=== PATIENT | female | born 1965 | race Caucasian/White ===

== ENCOUNTER → 2016-07-10 | Outpatient (CLI) | payer OTHER ==
--- NOTE | 2016-07-10 19:40 | Diagnostic Imaging Report ---
Bilateral diagnostic mammogram. The current study was also evaluated with a Computer Aided Detection (CAD) system. No prior studies are available for comparison. INDICATION: Lateral right breast pain and bilateral periareolar pain. FINDINGS: There are scattered fibroglandular densities seen slightly more dense in the lateral aspect of the left breast. This represents global asymmetry in the left breast that appears, however, to be related to fibroglandular tissue with no suspicious mass, architectural distortion or cluster of calcification identified. Benign-appearing calcifications are seen. IMPRESSION: No mammographic evidence of malignancy. Ultrasound evaluation pending. ACR BI-RADS Category 0: Incomplete. (Needs additional imaging evaluation). Result letter will be mailed to the patient. Note: At least 10% of breast cancer is not imaged by mammography. Dictated by: Dictated on workstation # [id number]
--- NOTE | 2016-07-10 19:41 | Diagnostic Imaging Report ---
Bilateral breast ultrasound. INDICATION: Right breast outer lump and bilateral periareolar pain. TECHNIQUE: All four quadrants and the retroareolar region were examined on this study. FINDINGS: The breast parenchyma in both sides is unremarkable with no focal lesion seen. IMPRESSION: Negative study. Clinical followup recommended. ACR BI-RADS Category 1: Negative. Dictated by: Dictated on workstation # [id number]
== END ==
LOC: RAD 08:37
PROVIDERS: ATTEND Nurse Practitioner Family
DX: N63 Unspecified lump in breast (principal)

== ENCOUNTER → 2016-08-20 | Outpatient (CLI) | payer OTHER | LOC: PREOP 05:42 | PROVIDERS: ATTEND Surgery | DX: Z01.818 Encounter for other preprocedural examination (principal); Z12.11 Encounter for screening for malignant neoplasm of colon; Z80.0 Family history of malignant neoplasm of digestive organs ==

== ENCOUNTER → 2017-01-11 | Outpatient (CLI) | payer OTHER ==
--- NOTE | 2017-01-11 15:56 | Diagnostic Imaging Report ---
PROCEDURE: CT abdomen and pelvis without contrast. TECHNIQUE: Multiple contiguous axial images were obtained through the abdomen and pelvis without the use of intravenous contrast. INDICATION: Pelvic pain. Left lower quadrant pain. FINDINGS: The lung bases demonstrate minimal groundglass opacity in the right lower lobe posteriorly, likely atelectasis. The liver, the spleen, the pancreas, and the adrenals appear unremarkable for an unenhanced exam. The gallbladder appears slightly contracted with no calcified stone. There is no hydronephrosis. Pelvic calcifications are seen with no urinary tract stone. There is thickening of the left rectus abdominis with slight heterogeneity, probably related to a rectus sheath hematoma. There is no bowel obstruction. No significant free fluid or fluid collection in the abdomen or pelvis. The abdominal aorta is normal in caliber. No paraaortic significantly enlarged lymph node is seen. The uterus and adnexa appear grossly unremarkable. The osseous structures appear grossly unremarkable. IMPRESSION: Thickening in the left rectus sheath below the level of the umbilicus may relate to rectus sheath hematoma. Maximus Hammer, the Nurse Practitioner taking care of the patient is called and informed of the findings at 8:40 AM on 01/12/17. Dictated by: Dictated on workstation # [id number]
--- NOTE | 2017-01-11 15:57 | Diagnostic Imaging Report ---
INDICATION: Pelvic pain. FINDINGS: The left ovary could not be identified. There is no left adnexal lesion. The right ovary contains small cysts with the largest measuring 1.8 cm and showing no complexity. There is no fibroid or myometrial mass. The endometrium is 5 mm which is within normal limits. IMPRESSION: Nonidentification of the left ovary. Simple appearing right ovarian cyst measuring 1.8 cm maximally. No free fluid. Dictated by: Dictated on workstation # [id number]
== END ==
LOC: RAD 13:54
PROVIDERS: ATTEND Nurse Practitioner Family
DX: N83.201 Unspecified ovarian cyst, right side (principal)
CPT/HCPCS: 74176; 76830; 76856

== ENCOUNTER → 2017-01-12 | Outpatient (CLI) | payer OTHER ==
[~2017-01-12] MED LIST: CATHETER FLUSH 10 ML SYR IV PRN; IOHEXOL 350 MG/ML 100 ML (OMNIPAQUE 350) VIAL IV ONE; NS 100 ML (IVPB) BAG IV ONE
[2017-01-12 11:50] LABS: BLOOD UREA NITROGEN 8 MG/DL (7-18); BUN/CREATININE RATIO 12; CREATININE SERUM 0.69 MG/DL (0.60-1.30); GFR ESTIMATED > 60
--- NOTE | 2017-01-12 12:59 | Diagnostic Imaging Report ---
PROCEDURE: CT abdomen and pelvis with contrast. TECHNIQUE: Multiple contiguous axial images were obtained through the abdomen and pelvis after administration of intravenous contrast. INDICATION: Left-sided pelvic pain. Exam compared with nonenhanced study of one day prior. Heterogeneous thickening of the infraumbilical left rectus sheath is a redemonstrated but less conspicuous finding. The left sheath components measure 2 cm maximal AP thickness today, previously 2.4 cm at this same level. By contrast the contralateral normal-appearing right sheath contents were about 1 cm in thickness. There is no extravasation of contrast media. No findings of active hemorrhage. The inferior epigastric arteries bilaterally appeared patent and unremarkable. There is mild engorgement and hyperenhancement of left-sided parametrial and gonadal venous channels which may reflect mild left-sided pelvic congestion. The uterus, adnexa, and urinary bladder otherwise unremarkable. There is no diverticulitis or appendicitis. There is no hydronephrosis. Liver, spleen, adrenals, pancreas, gallbladder unremarkable. There is no abdominal/ pelvic free fluid. IMPRESSION: Slight reduction in thickening of the left infraumbilical rectus sheath without extravasation of contrast or evidence for active bleeding. No adverse development when compared to prior. Some distention of left-sided parametrial and gonadal venous channels is a nonspecific finding. Negative for urinary tract obstruction, diverticulitis, appendicitis, or other inflammatory process. Dictated by: Dictated on workstation # [id number]
== END ==
LOC: RAD 11:20
PROVIDERS: ATTEND Nurse Practitioner Family
DX: R93.5 Abnormal findings on diagnostic imaging of other abdominal regions, including retroperitoneum (principal)
CPT/HCPCS: 36415; 74177; 82565; 84520

== ENCOUNTER → 2017-11-10 | Outpatient (CLI) | payer SELFPAY ==
--- NOTE | 2017-11-10 12:38 | Diagnostic Imaging Report ---
PROCEDURE: MR imaging cervical spine without contrast. TECHNIQUE: Multiplanar, multisequence MR imaging of the cervical spine was performed without contrast. INDICATION: Disequilibrium, back pain, neck pain. COMPARISON: There are no prior studies available for comparison. FINDINGS: The T2 sagittal images reveal that there is desiccation of the disc at every level and that there is fairly severe narrowing of the disc spaces at C4-5 and C5-6 and to a lesser degree at C6-7. At the C5-6 level, there is a broad-based disc bulge centrally. The disc indents the ventral aspect of the thecal sac and narrows the AP diameter to 7.7 mm. There is also narrowing of the neural foramen bilaterally at this level, particularly on the right. At the C4-5 level, there is a broad-based disc bulge which flattens the ventral aspect of the thecal sac and narrows the AP diameter to 9.7 mm. There is also neural foraminal narrowing at this level bilaterally. At the C6-7 level, there is a disc bulge eccentric to the right. The disc compresses the right ventral aspect of the thecal sac and narrows the AP diameter to 8.2 mm. There is also narrowing of the neural foramen on the right at this level. Mild neural foraminal narrowing on the left is also seen. At the C3-4 level, there is a disc bulge eccentric to the right. The disc narrows the AP diameter of the thecal sac to 10.1 mm. There is mild narrowing of the neural foramen on the right at this level. The remainder of the cervical spine is unremarkable for spinal stenosis or nerve root encroachment. There is no abnormal signal arising from the cord or the vertebral bodies to indicate an acute abnormality. There is no sign of a paraspinal mass. The expected carotid and vertebral flow voids are evident bilaterally. IMPRESSION: 1. There is multilevel degenerative disc, ligamentous, and bony disease involving the cervical spine. The C5-6 and C6-7 levels appear to be most severely affected. 2. There is no acute bony abnormality identified, and there is no sign of a cord lesion. Dictated by: Dictated on workstation # [id number]
== END ==
LOC: RAD 08:18
PROVIDERS: ATTEND Nurse Practitioner Family
DX: M53.2X2 Spinal instabilities, cervical region (principal); M47.812 Spondylosis without myelopathy or radiculopathy, cervical region
CPT/HCPCS: 72141

== ENCOUNTER 2018-05-03 15:24 | Emergency (ER) | payer SELFPAY ==
[~2018-05-03] VITALS: Ht 160 cm; Wt 63.5 kg
--- OUTSIDE RECORDS SUMMARY | 2018-05-03 15:29 | XMS REPORT ---
Author Author DHILLONEB Salinas Organization [facility] Address [address] [place] [address] Care Team Providers Care Pool Manager Name Role Phone EB DHILLON Unavailable PROBLEMS Type Condition ICD9-CM Code [id number]-AP Code Onset Dates Condition Status SNOMED Code Problem Essential hypertension I10 Active 87358650 Problem Abnormal CT of the abdomen R93.5 Active 85776393315392469 Problem Tobacco abuse counseling Z71.6 Active 800865151 Problem Tobacco abuse Z72.0 Active 529287621 Problem GERD with esophagitis K21.0 Active 996994889 Problem Hypercholesteremia E78.00 Active 09212403 Problem Overweight (BMI 25.0-29.9) E66.3 Active 707694250 Problem Menopausal vasomotor syndrome N95.1 Active 854350785 ALLERGIES No Information ENCOUNTERS Encounter Location Date Diagnosis [place] [id number] [place] [address]10- 1796 Feb, [facility] [id number] [place] [address] 01173- 1301 November, [facility] [id number] [place] [address] 78555- 1329 November, Essential hypertension I10 ; Hypercholesteremia E78.00 ; GERD with esophagitis K21.0 ; Tobacco abuse Z72.0 ; Tobacco abuse counseling Z71.6 ; Cervical spine pain M54.2 ; Menopausal vasomotor syndrome N95.1 and Overweight (BMI 25.0-29.9) E66.3 [facility] [id number] [place] [address] 96362- 4061 Sep, Menopausal vasomotor syndrome N95.1 [facility] [id number] [place] [address] 67207- 7582 Aug, Menopausal vasomotor syndrome N95.1 [place] [id number] [place] [address] 13258- 0678 Jul, [place] [address] [address] Jul, [place] [address] 65084- 5780 Jul, Essential hypertension I10 ; Hypercholesteremia E78.00 ; Menopausal vasomotor syndrome N95.1 and GERD with esophagitis K21.0 [place] [address] 84247- 0851 Jun, Pressure in chest R07.89 ; Essential hypertension I10 ; Hypercholesteremia E78.00 and GERD with esophagitis K21.0 [place] [address] 8[address]76- 74[address] Jun, [place] [address] 75477- 7990 Feb, Essential hypertension I10 ; Hypercholesteremia E78.00 ; Rectus sheath hematoma, subsequent encounter S30.1XXD and Abdominal pain due to injury R10.9 [place] [id number] [place] [address] 21071- 2527 Jan, Abnormal CT of the abdomen R93.5 [place] [address] 79677- 9021 Jan, Pelvic pain R10.2 [place] [address] 43228- 3[address] 05 Jan, 2017 Essential hypertension I10 and Hypercholesteremia E78.00 [place] [address] 69897- 5990 Sep, Essential hypertension I10 and Hypercholesteremia E78.00 [place] [address] 60154- 1337 Sep, [facility] [address] [place] [address] Aug, [facility] [address] [place] [address] Aug, [facility] [address] [place] [address] Aug, Encounter to establish care Z76.89 and Essential hypertension I10 [facility] [address] [place] [address] 25767- 7224 Aug, [place] [id number] [place] [address] 72242- 4674 Aug, [facility] [id number] [place] [address] 68015- 3702 Jul, [place] [address] [place] [address] 68225- 4185 Jul, Encounter for well woman exam with routine gynecological exam Z01.419 ; Encounter for screening for malignant neoplasm of cervix Z12.4 ; Encounter for screening breast examination Z12.39 ; Screening for STD sexually transmitted disease Z11.3 ; Acute non-recurrent maxillary sinusitis J01.00 and Vaginal candidiasis B37.3 [place] [address], [place] [address] Jun, Breast lump in female N63 IMMUNIZATIONS No Known Immunizations SOCIAL HISTORY Never Assessed REASON FOR VISIT x-ray results PLAN OF CARE VITAL SIGNS MEDICATIONS Medication Instructions Dosage Frequency Start Date End Date Duration Status Tizanidine HCl 4 MG Orally at bedtime 1 tablet as needed November, Dec, 30 days Active RESULTS No Results PROCEDURES No Known procedures INSTRUCTIONS MEDICATIONS ADMINISTERED No Known Medications MEDICAL (GENERAL) HISTORY Type Description Date Medical History hypertension Hospitalization History childbirth only
--- OUTSIDE RECORDS SUMMARY | 2018-05-03 15:29 | XMS REPORT ---
Author Author EB DHILLON Organization [facility] Address [address] [place] [address] Care Team Providers Care Brace Maker Name Role Phone EB DHILLON Unavailable PROBLEMS Type Condition ICD9-CM Code CJV56-LD Code Onset Dates Condition Status SNOMED Code Problem Hypercholesteremia E78.00 Active 78981623 Problem Encounter to establish care Z76.89 Active 458027462 Problem Essential hypertension I10 Active 12192089 Problem Abnormal CT of the abdomen R93.5 Active 78864590559341578 ALLERGIES Substance Reaction Event Type Date Status N.K.D.A. Unknown Non Drug Allergy Jul, Unknown SOCIAL HISTORY No smoking Hx information available PLAN OF CARE Activity Details Follow Up 1 Year, prn Reason: VITAL SIGNS Height 63 in 2016-07-23 Weight 148.7 lbs 2016-07-23 Temperature 97.8 degrees Fahrenheit 2016-07-23 Heart Rate 82 bpm 2016-07-23 Respiratory Rate 18 2016-07-23 BMI 26.34 kg/m2 2016-07-23 Blood pressure systolic 152 mmHg 2016-07-23 Blood pressure diastolic 86 mmHg 2016-07-23 MEDICATIONS Medication Instructions Dosage Frequency Start Date End Date Duration Status Augmentin 875-125 MG Orally every 12 hrs 1 tablet 12h Jul,Jul 10 day(s) Active Diflucan 150 MG Orally one time 1 tablet today and one tablet in 10 days Jul, Jul, 2 days Active Mucinex 600 MG Orally every 12 hrs 1 tablet as needed 12h Active RESULTS Name Result Date Reference Range BACTERIAL VAGINOSIS (IN HOUSE) 2016-07-23 RESULTS negative Control + Lot # [id number] Exp date 02/2017 GC/CHLAM PROBE (STATE) 2016-07-23 CHLAMYDIA GC TRICHOMONAS (IN HOUSE) 2016-07-23 TRICHOMONAS negative Control + Lot # [id number] Exp date 08/2017 CULTURE, GENITAL 2016-07-23 Genital Culture, Routine Final report Result 1 PAP TEST W/ HPV REGARDLESS 2016-07-23 DIAGNOSIS: Specimen adequacy: Clinician provided ICD10: Performed by: . . Note: HPV, high-risk Negative Negative PDF Report 2016-07-23 PDF Report1 [facility]S PROCEDURES Procedure Date Ordered Related Diagnosis Body Site PELVIC EXAMINATION 2016-07-23 N/A No Charge Jul 23, 2016 Preventive Care Est Pt. Age 40-64 Jul 23, 2016 TUTTLE VAG, DNA, DIR PROBE Jul 23, 2016 TRICHOMONAS ASSAY W/OPTIC Jul 23, 2016 SPECIMEN HANDLING Jul 23, 2016 CULTURE, BACTERIA, OTHER Jul 23, 2016 IMMUNIZATIONS No Known Immunizations
--- OUTSIDE RECORDS SUMMARY | 2018-05-03 15:29 | XMS REPORT ---
Author Author EB DHILLON Organization [facility] Address [address] [place] [address] Care Team Providers Care Med Spec Name Role Phone EB DHILLON Unavailable PROBLEMS Type Condition ICD9-CM Code EDI73-GW Code Onset Dates Condition Status SNOMED Code Problem Essential hypertension I10 Active 38369090 Problem Abnormal CT of the abdomen R93.5 Active 70278547474596836 Problem Tobacco abuse counseling Z71.6 Active 071399206 Problem Tobacco abuse Z72.0 Active 648657670 Problem GERD with esophagitis K21.0 Active 336026279 Problem Hypercholesteremia E78.00 Active 10035239 Problem Overweight (BMI 25.0-29.9) E66.3 Active 630474548 Problem Menopausal vasomotor syndrome N95.1 Active 499642556 ALLERGIES No Information ENCOUNTERS Encounter Location Date Diagnosis [facility] [id number] [place] [address] 26149- 4408 November, [facility] [id number] [place] [address] 33867- 0141 November, Essential hypertension I10 ; Hypercholesteremia E78.00 ; GERD with esophagitis K21.0 ; Tobacco abuse Z72.0 ; Tobacco abuse counseling Z71.6 ; Cervical spine pain M54.2 ; Menopausal vasomotor syndrome N95.1 and Overweight (BMI 25.0-29.9) E66.3 [facility] [address] [place] [address] 82319- 5806 Sep, Menopausal vasomotor syndrome N95.1 [facility] [address] [place] [address] 47752- 2106 Aug, Menopausal vasomotor syndrome N95.1 [facility] [id number] [place] [address] 36346- 1919 Jul, [facility] [id number] [place] [address] 14259- 1618 Jul, [place] [address] [address]- [address] Jul, Essential hypertension I10 ; Hypercholesteremia E78.00 ; Menopausal vasomotor syndrome N95.1 and GERD with esophagitis K21.0 [place] [address] 14664- 0244 Jun, Pressure in chest R07.89 ; Essential hypertension I10 ; Hypercholesteremia E78.00 and GERD with esophagitis K21.0 [place] [address] 99535- 0146 Jun, [place] [address] 5[address]60- [address]551 Feb, Essential hypertension I10 ; Hypercholesteremia E78.00 ; Rectus sheath hematoma, subsequent encounter S30.1XXD and Abdominal pain due to injury R10.9 [place] [address] 54277- [address]484 Jan, Abnormal CT of the abdomen R93.5 [place] [id number] [place] [address] 41871- 5333 Jan, Pelvic pain R10.2 [place] [address] 13466- 2960 Jan, Essential hypertension I10 and Hypercholesteremia E78.00 [place] [id number] [place] [address] 31566- 4407 Sep, Essential hypertension I10 and Hypercholesteremia E78.00 [place] [id number] [place] [address] 81349- 9778 Sep, [place] [id number] [place] [address] 49620- 5542 Aug, [facility] [address] [address]- 7[address] Aug, [facility] [id number] [place] [address] 67167- 2128 Aug, Encounter to establish care Z76.89 and Essential hypertension I10 [place] [id number] [place] [address] 72008- 5930 Aug, [facility] [id number] [place] [address] 88364- 5833 Aug, [place] [id number] [place] [address] 71472- 2075 Jul, [place] [address] [place] [address] 95770- 4851 Jul, Encounter for well woman exam with routine gynecological exam Z01.419 ; Encounter for screening for malignant neoplasm of cervix Z12.4 ; Encounter for screening breast examination Z12.39 ; Screening for STD sexually transmitted disease Z11.3 ; Acute non-recurrent maxillary sinusitis J01.00 and Vaginal candidiasis B37.3 [place] [address] [place] [address] 57388- 1661 Jun, Breast lump in female N63 IMMUNIZATIONS No Known Immunizations SOCIAL HISTORY Never Assessed REASON FOR VISIT Requests return call PLAN OF CARE VITAL SIGNS MEDICATIONS Unknown Medications RESULTS No Results PROCEDURES No Known procedures INSTRUCTIONS MEDICATIONS ADMINISTERED No Known Medications MEDICAL (GENERAL) HISTORY Type Description Date Medical History hypertension Hospitalization History childbirth only
--- OUTSIDE RECORDS SUMMARY | 2018-05-03 15:29 | XMS REPORT ---
Author Author DHILLONEB Salinas Organization [facility] Address [address] [place] [address] Care Team Providers Care Fieldwork Coordinator Name Role Phone EB DHILLON Unavailable PROBLEMS Type Condition ICD9-CM Code SLU50-GV Code Onset Dates Condition Status SNOMED Code Problem Essential hypertension I10 Active 46620159 Problem Abnormal CT of the abdomen R93.5 Active 91745081210672256 Problem Tobacco abuse counseling Z71.6 Active 889714243 Problem Tobacco abuse Z72.0 Active 458349316 Problem GERD with esophagitis K21.0 Active 333036803 Problem Hypercholesteremia E78.00 Active 83458245 Problem Overweight (BMI 25.0-29.9) E66.3 Active 588203584 Problem Menopausal vasomotor syndrome N95.1 Active 979131511 ALLERGIES No Known Allergies ENCOUNTERS Encounter Location Date Diagnosis [place] [id number] [place] [address] 84032- 7355 Feb, [facility] [id number] [place] [address] 75430- 8914 November, [facility] [id number] [place] [address] 35711- 9556 November, Essential hypertension I10 ; Hypercholesteremia E78.00 ; GERD with esophagitis K21.0 ; Tobacco abuse Z72.0 ; Tobacco abuse counseling Z71.6 ; Cervical spine pain M54.2 ; Menopausal vasomotor syndrome N95.1 and Overweight (BMI 25.0-29.9) E66.3 [facility] [id number] [place] [address] 84113- 0313 Sep, Menopausal vasomotor syndrome N95.1 [facility] [id number] [place] [address] 30744- 8852 Aug, Menopausal vasomotor syndrome N95.1 [place] [id number] [place] [address] 63666- 1206 Jul, [place] [address] 9[address]91- 7880 Jul, [place] [address] 87427- 0731 Jul, Essential hypertension I10 ; Hypercholesteremia E78.00 ; Menopausal vasomotor syndrome N95.1 and GERD with esophagitis K21.0 [place] [address] 88073- 0254 Jun, Pressure in chest R07.89 ; Essential hypertension I10 ; Hypercholesteremia E78.00 and GERD with esophagitis K21.0 [place] [address] 90891- 8399 Jun, [place] [address] 13074- 8457 Feb, Essential hypertension I10 ; Hypercholesteremia E78.00 ; Rectus sheath hematoma, subsequent encounter S30.1XXD and Abdominal pain due to injury R10.9 [place] [id number] [place] [address] 99303- [address] Jan[address] of the abdomen R93.5 [place] [address] 01889- 9524 10 Jan, 2017 Pelvic pain R10.2 [place] [address] 89344- 9229 05 Jan, 2017 Essential hypertension I10 and Hypercholesteremia E78.00 [place] [address] 15119- 5216 Sep, Essential hypertension I10 and Hypercholesteremia E78.00 [place] [address] 72149- 5662 Sep, [facility] [address] [address]- 8885 Aug, [facility] [address] [place] [address] 33112- 0825 Aug, [place] [id number] [place] [address] 81607- 5463 Aug, Encounter to establish care Z76.89 and Essential hypertension I10 [place] [id number] [place] [address] 35965- 4332 Aug, [place] [id number] [place] [address] 95454- 9063 Aug, [place] [id number] [place] [address] 78251- 8579 Jul, [place] [id number] [place] [address] 15163- 4396 Jul, Encounter for well woman exam with routine gynecological exam Z01.419 ; Encounter for screening for malignant neoplasm of cervix Z12.4 ; Encounter for screening breast examination Z12.39 ; Screening for STD sexually transmitted disease Z11.3 ; Acute non-recurrent maxillary sinusitis J01.00 and Vaginal candidiasis B37.3 [place] [address] [address]- [address]26 Jun, Breast lump in female N63 IMMUNIZATIONS No Known Immunizations SOCIAL HISTORY Never Assessed REASON FOR VISIT Hypertension----DBennettRN PLAN OF CARE Activity Details Follow Up 3 Months, prn Reason:CHM/HTN VITAL SIGNS Height 63.7 in 2017-11-04 Weight 145 lbs 2017-11-04 Temperature 98.5 degrees Fahrenheit 2017-11-04 Heart Rate 90 bpm 2017-11-04 Respiratory Rate 20 2017-11-04 BMI 25.12 kg/m2 2017-11-04 Blood pressure systolic 122 mmHg 2017-11-04 Blood pressure diastolic 74 mmHg 2017-11-04 MEDICATIONS Medication Instructions Dosage Frequency Start Date End Date Duration Status Paxil 40 mg Orally Once a day 1 tablet in the morning 24h 15 Jul, 2018 90 days Active Omeprazole Magnesium 20.6 (20 Base) mg Orally Once a day 1 tablet 24h 30 Active Atorvastatin Calcium 10 mg Orally Once a day 1 tablet 24h Aug, 90 days Active Amlodipine Besylate 5 mg Orally Once a day 1 tablet 24h Jun, 30 days Active Lisinopril 20 mg Orally Once a day 1 tablet 24h 90 days Active RESULTS Name Result Date Reference Range Xray : Spine, Cervical (IN HOUSE) 2017-11-04 MRI : Cervical w/o Contrast 2017-11-10 PROCEDURES Procedure Date Ordered Result Body Site X-RAY EXAM OF NECK SPINE November 04, 2017 INSTRUCTIONS MEDICATIONS ADMINISTERED No Known Medications MEDICAL (GENERAL) HISTORY Type Description Date Medical History hypertension Hospitalization History childbirth only
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
--- OUTSIDE RECORDS SUMMARY | 2018-05-03 15:29 | XMS REPORT ---
Author Author EB DHILLON Organization [facility] Address [address] [place] [address] Care Team Providers Care Coding File Clerk Name Role Phone EB DHILLON Unavailable PROBLEMS Type Condition ICD9-CM Code DTC31-NV Code Onset Dates Condition Status SNOMED Code Problem Hypercholesteremia E78.00 Active 58016764 Problem Encounter to establish care Z76.89 Active 664140410 Problem Essential hypertension I10 Active 20776671 Problem Abnormal CT of the abdomen R93.5 Active [id number] ALLERGIES No Known Allergies SOCIAL HISTORY Never Assessed PLAN OF CARE Activity Details Follow Up 3 Months Reason:[facility] VITAL SIGNS Height 63.7 in 2016-09-17 Weight 145 lbs 2016-09-17 Temperature 98.5 degrees Fahrenheit 2016-09-17 Heart Rate 90 bpm 2016-09-17 Respiratory Rate 20 2016-09-17 BMI 25.12 kg/m2 2016-09-17 Blood pressure systolic 136 mmHg 2016-09-17 Blood pressure diastolic 84 mmHg 2016-09-17 MEDICATIONS Medication Instructions Dosage Frequency Start Date End Date Duration Status Atorvastatin Calcium 10 mg Orally Once a day 1 tablet 24h Aug, 90 days Active Lisinopril 20 mg Orally Once a day 1 tablet 24h 90 days Active RESULTS No Results PROCEDURES No Known procedures IMMUNIZATIONS No Known Immunizations MEDICAL (GENERAL) HISTORY Type Description Date Medical History hypertension Hospitalization History childbirth only
--- OUTSIDE RECORDS SUMMARY | 2018-05-03 15:29 | XMS REPORT ---
Author Author EB DHILLON Organization [facility] Address [address] [place] [address] Care Team Providers Care Stencil Printer Name Role Phone EB DHILLON Unavailable PROBLEMS Type Condition ICD9-CM Code YFS67-ZN Code Onset Dates Condition Status SNOMED Code Problem Essential hypertension I10 Active 21485993 Problem Abnormal CT of the abdomen R93.5 Active 57322645864304976 Problem Tobacco abuse counseling Z71.6 Active 985458648 Problem Tobacco abuse Z72.0 Active 818050738 Problem GERD with esophagitis K21.0 Active 895355399 Problem Hypercholesteremia E78.00 Active 79242522 Problem Overweight (BMI 25.0-29.9) E66.3 Active 945028614 Problem Menopausal vasomotor syndrome N95.1 Active 465179256 ALLERGIES No Known Allergies ENCOUNTERS Encounter Location Date Diagnosis [facility] [address] [place] [address] 73298- 7838 November, [facility] [id number] [place] [address] 95279- 9548 November, Essential hypertension I10 ; Hypercholesteremia E78.00 ; GERD with esophagitis K21.0 ; Tobacco abuse Z72.0 ; Tobacco abuse counseling Z71.6 ; Cervical spine pain M54.2 ; Menopausal vasomotor syndrome N95.1 and Overweight (BMI 25.0-29.9) E66.3 [facility] [address] [place] [address] 80624- 6115 Sep, Menopausal vasomotor syndrome N95.1 [facility] [address] [place] [address] 18036- 0697 Aug, Menopausal vasomotor syndrome N95.1 [facility] [id number] [place] [address] 70468- 9078 Jul, [facility] [address] 03065- 1061 Jul, [place] [address] 46452- 2145 Jul, Essential hypertension I10 ; Hypercholesteremia E78.00 ; Menopausal vasomotor syndrome N95.1 and GERD with esophagitis K21.0 [place] [address] 49540- 7880 Jun, Pressure in chest R07.89 ; Essential hypertension I10 ; Hypercholesteremia E78.00 and GERD with esophagitis K21.0 [place] [address] 37027- 5324 Jun, [place] [address] 80407- 2748 Feb, Essential hypertension I10 ; Hypercholesteremia E78.00 ; Rectus sheath hematoma, subsequent encounter S30.1XXD and Abdominal pain due to injury R10.9 [place] [address] 72225- 1768 Jan, Abnormal CT of the abdomen R93.5 [place] [address] 19253- 7932 Jan, Pelvic pain R10.2 [place] [address] 92224- 4668 Jan, Essential hypertension I10 and Hypercholesteremia E78.00 [place] [address] 17682- 0590 Sep, Essential hypertension I10 and Hypercholesteremia E78.00 [place] [id number] [place] [address] 27571- 1851 Sep, [place] [address] 83311- 5546 Aug, [place] [address], [place] [address]- 9187 Aug, [place] [address] [place] [address] 58459- 5382 Aug, Encounter to establish care Z76.89 and Essential hypertension I10 [place] [address] [id number] [place] [address] 89261- 9151 Aug, [place] [address] [place] [id number] [place] [address] 00807- 3225 Aug, [place] [address] [place] [id number] [place] [address] 88761- 8878 Jul, [place] [address] [id number] [place] [address] 04492- 3365 Jul, Encounter for well woman exam with routine gynecological exam Z01.419 ; Encounter for screening for malignant neoplasm of cervix Z12.4 ; Encounter for screening breast examination Z12.39 ; Screening for STD sexually transmitted disease Z11.3 ; Acute non-recurrent maxillary sinusitis J01.00 and Vaginal candidiasis B37.3 [place] [address] [place] [address] 72776- 2175 Jun, Breast lump in female N63 IMMUNIZATIONS No Known Immunizations SOCIAL HISTORY Never Assessed REASON FOR VISIT --hypertension follow up on medication changes--[facility] PLAN OF CARE Activity Details Follow Up 3 Months Reason:CHM/HTN VITAL SIGNS Height 63.7 in 2017-07-19 Weight 152.7 lbs 2017-07-19 Temperature 98.0 degrees Fahrenheit 2017-07-19 Heart Rate 80 bpm 2017-07-19 Respiratory Rate 20 2017-07-19 BMI 26.46 kg/m2 2017-07-19 Blood pressure systolic 132 mmHg 2017-07-19 Blood pressure diastolic 83 mmHg 2017-07-19 MEDICATIONS Medication Instructions Dosage Frequency Start Date End Date Duration Status Atorvastatin Calcium 10 mg Orally Once a day 1 tablet 24h Aug, 90 days Active Amlodipine Besylate 5 mg Orally Once a day 1 tablet 24h Jun, 90 days Active Omeprazole Magnesium 20.6 (20 Base) mg Orally Once a day 1 tablet 24h Jun, Active Paxil 20 mg Orally Once a day 1 tablet in the morning 24h Jul, 30 day(s) Active Lisinopril 20 mg Orally Once a day 1 tablet 24h 90 days Active RESULTS No Results PROCEDURES No Known procedures INSTRUCTIONS MEDICATIONS ADMINISTERED No Known Medications MEDICAL (GENERAL) HISTORY Type Description Date Medical History hypertension Hospitalization History childbirth only
--- OUTSIDE RECORDS SUMMARY | 2018-05-03 15:30 | XMS REPORT ---
Author Author EB DHILLON Organization [facility] Address [address] [place] [address] Care Team Providers Care Embroiderer Name Role Phone EB DHILLON Unavailable PROBLEMS Type Condition ICD9-CM Code BTI96-UG Code Onset Dates Condition Status SNOMED Code Problem Essential hypertension I10 Active 39870417 Problem Abnormal CT of the abdomen R93.5 Active 34808745708039422 Problem Tobacco abuse counseling Z71.6 Active 723052725 Problem Tobacco abuse Z72.0 Active 018031920 Problem GERD with esophagitis K21.0 Active 316661655 Problem Hypercholesteremia E78.00 Active 69457680 Problem Overweight (BMI 25.0-29.9) E66.3 Active 547975987 Problem Menopausal vasomotor syndrome N95.1 Active 743209635 ALLERGIES No Information ENCOUNTERS Encounter Location Date Diagnosis [facility] [address] [place] [id number] [place] [address] 54363- 8012 November, [facility] [id number] [place] [address] 45385- 4283 November, Essential hypertension I10 ; Hypercholesteremia E78.00 ; GERD with esophagitis K21.0 ; Tobacco abuse Z72.0 ; Tobacco abuse counseling Z71.6 ; Cervical spine pain M54.2 ; Menopausal vasomotor syndrome N95.1 and Overweight (BMI 25.0-29.9) E66.3 [facility] [address] [place] [address] 98025- 0427 Sep, Menopausal vasomotor syndrome N95.1 [facility] [address] [place] [address] 31236- 7261 Aug, Menopausal vasomotor syndrome N95.1 [facility] [address] [place] [id number] [place] [address] 22270- 1347 Jul, [facility] [address] [place] [id number] [place] [address] 33842- 3665 Jul, [place] [address] 22597- 8812 Jul, Essential hypertension I10 ; Hypercholesteremia E78.00 ; Menopausal vasomotor syndrome N95.1 and GERD with esophagitis K21.0 [place] [address] 80193- 3029 Jun, Pressure in chest R07.89 ; Essential hypertension I10 ; Hypercholesteremia E78.00 and GERD with esophagitis K21.0 [place] [address] 64356- 7003 Jun, [place] [address] 55262- 2516 Feb, Essential hypertension I10 ; Hypercholesteremia E78.00 ; Rectus sheath hematoma, subsequent encounter S30.1XXD and Abdominal pain due to injury R10.9 [place] [address] 31361- 0709 Jan, Abnormal CT of the abdomen R93.5 [place] [address] [id number] [place] [address] 57334- 4341 Jan, Pelvic pain R10.2 [place] [address] 32506- 0689 Jan, Essential hypertension I10 and Hypercholesteremia E78.00 [place] [address] [id number] [place] [address] 92441- 4588 Sep, Essential hypertension I10 and Hypercholesteremia E78.00 [place] [address] [place] [id number] [place] [address] 22860- 9178 Sep, [place] [address] [place] [address] [id number] [place] [address] 78559- 9240 Aug, [facility] [address] [address]- 9401 Aug, [facility] [address] [place] [address] 06445- 7637 16 Aug, 2016 Encounter to establish care Z76.89 and Essential hypertension I10 [place] [id number] [place] [address] 56526- 3034 Aug, [facility] [address] [place] [address] 50440- 6632 Aug, [place] [address] [id number] [place] [address] 51907- 7022 Jul, [place] [address] [place] [address] 13403- 8485 Jul, Encounter for well woman exam with routine gynecological exam Z01.419 ; Encounter for screening for malignant neoplasm of cervix Z12.4 ; Encounter for screening breast examination Z12.39 ; Screening for STD sexually transmitted disease Z11.3 ; Acute non-recurrent maxillary sinusitis J01.00 and Vaginal candidiasis B37.3 [place] [address] [place] [address] 42760- 8158 Jun, Breast lump in female N63 IMMUNIZATIONS No Known Immunizations SOCIAL HISTORY Never Assessed REASON FOR VISIT Medication question PLAN OF CARE VITAL SIGNS MEDICATIONS Medication Instructions Dosage Frequency Start Date End Date Duration Status Paxil 40 MG Orally Once a day 1 tablet in the morning 24h Jul, 30 days Active RESULTS No Results PROCEDURES No Known procedures INSTRUCTIONS MEDICATIONS ADMINISTERED No Known Medications MEDICAL (GENERAL) HISTORY Type Description Date Medical History hypertension Hospitalization History childbirth only
--- OUTSIDE RECORDS SUMMARY | 2018-05-03 15:30 | XMS REPORT ---
Author Author EB DHILLON Organization [facility] Address [address] [place] [address] Care Team Providers Care Motor Vehicle Inspector Name Role Phone EB DHILLON Unavailable PROBLEMS Type Condition ICD9-CM Code [id number]-[id number] Code Onset Dates Condition Status SNOMED Code Problem Essential hypertension I10 Active 06719244 Problem Abnormal CT of the abdomen R93.5 Active 59030331408302058 Problem Tobacco abuse counseling Z71.6 Active 956743862 Problem Tobacco abuse Z72.0 Active 603344216 Problem GERD with esophagitis K21.0 Active 399564087 Problem Hypercholesteremia E78.00 Active 12924283 Problem Overweight (BMI 25.0-29.9) E66.3 Active 127407336 Problem Menopausal vasomotor syndrome N95.1 Active 600831801 ALLERGIES No Information ENCOUNTERS Encounter Location Date Diagnosis [facility] [id number] [place] [address] 16912- 4001 November, [facility] [id number] [place] [address] 40308- 7729 November, Essential hypertension I10 ; Hypercholesteremia E78.00 ; GERD with esophagitis K21.0 ; Tobacco abuse Z72.0 ; Tobacco abuse counseling Z71.6 ; Cervical spine pain M54.2 ; Menopausal vasomotor syndrome N95.1 and Overweight (BMI 25.0-29.9) E66.3 [facility] [id number] [place] [address] 74748- 5623 Sep, Menopausal vasomotor syndrome N95.1 [facility] [id number] [place] [address] 28607- 1309 Aug, Menopausal vasomotor syndrome N95.1 [facility] [id number] [place] [address] 26293- 2352 Jul, [facility] [id number] [place] [address] 42941- 5318 Jul, [place] [address] 92757- 4838 Jul, Essential hypertension I10 ; Hypercholesteremia E78.00 ; Menopausal vasomotor syndrome N95.1 and GERD with esophagitis K21.0 [place] [address] 41597- 5933 Jun, Pressure in chest R07.89 ; Essential hypertension I10 ; Hypercholesteremia E78.00 and GERD with esophagitis K21.0 [place] [address] 90752- 1899 Jun, [place] [address] 41253- 6283 Feb, Essential hypertension I10 ; Hypercholesteremia E78.00 ; Rectus sheath hematoma, subsequent encounter S30.1XXD and Abdominal pain due to injury R10.9 [place] [address] 34126- 3917 Jan, Abnormal CT of the abdomen R93.5 [place] [id number] [place] [address] 23057- 8699 Jan, Pelvic pain R10.2 [place] [address] 81027- 9836 Jan, Essential hypertension I10 and Hypercholesteremia E78.00 [place] [id number] [place] [address] 80893- 5442 Sep, Essential hypertension I10 and Hypercholesteremia E78.00 [place] [id number] [place] [address] 58293- 4695 Sep, [place] [id number] [place] [address] 16292- 8479 Aug, [facility] [address] [address] 7[address] Aug, [facility] [id number] [place] [address] 04140- 1657 Aug, Encounter to establish care Z76.89 and Essential hypertension I10 [place] [id number] [place] [address] 16259- 1551 Aug, [facility] [id number] [place] [address] 99793- 8055 Aug, [facility] [id number] [place] [address] 34244- 9929 Jul, [facility] [address] [place] [address] 93257- 6034 Jul, Encounter for well woman exam with routine gynecological exam Z01.419 ; Encounter for screening for malignant neoplasm of cervix Z12.4 ; Encounter for screening breast examination Z12.39 ; Screening for STD sexually transmitted disease Z11.3 ; Acute non-recurrent maxillary sinusitis J01.00 and Vaginal candidiasis B37.3 [place] [address] [address] Jun, Breast lump in female N63 IMMUNIZATIONS No Known Immunizations SOCIAL HISTORY Never Assessed REASON FOR VISIT eye exam PLAN OF CARE VITAL SIGNS MEDICATIONS Unknown Medications RESULTS No Results PROCEDURES No Known procedures INSTRUCTIONS MEDICATIONS ADMINISTERED No Known Medications MEDICAL (GENERAL) HISTORY Type Description Date Medical History hypertension Hospitalization History childbirth only
--- OUTSIDE RECORDS SUMMARY | 2018-05-03 15:30 | XMS REPORT ---
Author Author EB DHILLON Organization [facility] Address [address] [place] [address] Care Team Providers Care Equities Analyst Name Role Phone EB DHILLON Unavailable PROBLEMS Type Condition ICD9-CM Code ARA18-JJ Code Onset Dates Condition Status SNOMED Code Problem Hypercholesteremia E78.00 Active 82051684 Problem Encounter to establish care Z76.89 Active 117561309 Problem Essential hypertension I10 Active 61642194 Problem Abnormal CT of the abdomen R93.5 Active 07501952844539710 ALLERGIES No Information SOCIAL HISTORY Never Assessed PLAN OF CARE VITAL SIGNS MEDICATIONS Medication Instructions Dosage Frequency Start Date End Date Duration Status Atorvastatin Calcium 10 mg Orally Once a day 1 tablet 24h Aug, 90 days Active RESULTS No Results PROCEDURES No Known procedures IMMUNIZATIONS No Known Immunizations MEDICAL (GENERAL) HISTORY Type Description Date Medical History hypertension Hospitalization History childbirth only
--- OUTSIDE RECORDS SUMMARY | 2018-05-03 15:30 | XMS REPORT ---
Author Author DHILLONEB Salinas Organization [facility] Address [address] [place] [address] Care Team Providers Care C.O.D. Clerk Name Role Phone EB DHILLON Unavailable PROBLEMS Type Condition ICD9-CM Code GEM54-DK Code Onset Dates Condition Status SNOMED Code Problem Menopausal vasomotor syndrome N95.1 Active 609443593 Problem GERD with esophagitis K21.0 Active 725380570 Problem Encounter to establish care Z76.89 Active 719181872 Problem Abnormal CT of the abdomen R93.5 Active 38950173501919951 Problem Hypercholesteremia E78.00 Active 88211125 Problem Essential hypertension I10 Active 73790896 ALLERGIES No Known Allergies ENCOUNTERS Encounter Location Date Diagnosis [facility] [id number] [place] [address] 03051- 9403 November, [facility] [id number] [place] [address] 27504- 6767 Sep, Menopausal vasomotor syndrome N95.1 [facility] [id number] [place] [address] 83199- 7525 Aug, Menopausal vasomotor syndrome N95.1 [facility] [id number] [place] [address] 52414- 9163 Jul, [facility] [id number] [place] [address] 43111- 3012 Jul, [facility] [address] 09110- 5697 Jul, Essential hypertension I10 ; Hypercholesteremia E78.00 ; Menopausal vasomotor syndrome N95.1 and GERD with esophagitis K21.0 [facility] [id number] [place] [address] 17223- 2011 Jun, Pressure in chest R07.89 ; Essential hypertension I10 ; Hypercholesteremia E78.00 and GERD with esophagitis K21.0 [place] [address] 27487- 4951 Jun, [place] [address] 46282- 4437 Feb, Essential hypertension I10 ; Hypercholesteremia E78.00 ; Rectus sheath hematoma, subsequent encounter S30.1XXD and Abdominal pain due to injury R10.9 [place] [address] 60872- 0485 10 Jan, [address] of the abdomen R93.5 [place] [address] 07810- 1001 10 Jan, 2017 Pelvic pain R10.2 [place] [address] 12552- 4764 05 Jan, 2017 Essential hypertension I10 and Hypercholesteremia E78.00 [place] [address] 57012- 2988 Sep, Essential hypertension I10 and Hypercholesteremia E78.00 [place] [id number] [place] [address] 17917- 5447 Sep, [place] [address] 11681- 3225 Aug, [place] [address] [id number] [place] [address] 74137- 7136 Aug, [place] [address] 50561- 3434 16 Aug, 2016 Encounter to establish care Z76.89 and Essential hypertension I10 [place] [address] 34753- 5507 14 Aug, 2016 [place] [address] [place] [address]- 2696 Aug, [facility] [address] [facility] [id number] [address] Jul, [facility] [address] [facility] [id number] [address] 2546 Jul, Encounter for well woman exam with routine gynecological exam Z01.419 ; Encounter for screening for malignant neoplasm of cervix Z12.4 ; Encounter for screening breast examination Z12.39 ; Screening for STD sexually transmitted disease Z11.3 ; Acute non-recurrent maxillary sinusitis J01.00 and Vaginal candidiasis B37.3 [place] [address] [facility] [id number] [address] Jun, Breast lump in female N63 IMMUNIZATIONS No Known Immunizations SOCIAL HISTORY Never Assessed REASON FOR VISIT BP f/u--DBennettRN PLAN OF CARE Activity Details Follow Up 3 Months Reason:CHM/HTN VITAL SIGNS Height 63.7 in 2017-02-04 Weight 142 lbs 2017-02-04 Temperature 98.0 degrees Fahrenheit 2017-02-04 Heart Rate 90 bpm 2017-02-04 Respiratory Rate 20 2017-02-04 BMI 24.60 kg/m2 2017-02-04 Blood pressure systolic 128 mmHg 2017-02-04 Blood pressure diastolic 86 mmHg 2017-02-04 MEDICATIONS Medication Instructions Dosage Frequency Start Date [...]
--- OUTSIDE RECORDS SUMMARY | 2018-05-03 15:30 | XMS REPORT ---
Author Author EB DHILLON Organization [facility] Address [address] [place] [address] Care Team Providers Care Senior Vice President & General Counsel Name Role Phone EB DHILLON Unavailable PROBLEMS Type Condition ICD9-CM Code TIQ30-UK Code Onset Dates Condition Status SNOMED Code Problem Hypercholesteremia E78.00 Active 64172295 Problem Encounter to establish care Z76.89 Active 756534046 Problem Essential hypertension I10 Active 31086408 Problem Abnormal CT of the abdomen R93.5 Active 97726463041209807 ALLERGIES No Known Allergies SOCIAL HISTORY Never Assessed PLAN OF CARE VITAL SIGNS MEDICATIONS Medication Instructions Dosage Frequency Start Date End Date Duration Status Lisinopril 10 mg Orally Once a day 1 tablet 24h Aug, 30 days Active RESULTS No Results PROCEDURES No Known procedures IMMUNIZATIONS No Known Immunizations MEDICAL (GENERAL) HISTORY Type Description Date Medical History hypertension Hospitalization History childbirth only
--- OUTSIDE RECORDS SUMMARY | 2018-05-03 15:30 | XMS REPORT ---
Author Author EB DHILLON Organization [facility] Address [address] [place] [address] Care Team Providers Care Laboratory Helper Name Role Phone EB DHILLON Unavailable PROBLEMS Type Condition ICD9-CM Code CGC76-HO Code Onset Dates Condition Status SNOMED Code Problem Hypercholesteremia E78.00 Active 15800757 Problem Encounter to establish care Z76.89 Active 840986826 Problem Essential hypertension I10 Active 86407905 Problem Abnormal CT of the abdomen R93.5 Active 04143611501251087 ALLERGIES No Information SOCIAL HISTORY Never Assessed PLAN OF CARE VITAL SIGNS Height 63.7 in 2016-09-02 Blood pressure systolic 132 mmHg 2016-09-02 Blood pressure diastolic 88 mmHg 2016-09-02 MEDICATIONS No Known Medications RESULTS No Results PROCEDURES No Known procedures IMMUNIZATIONS No Known Immunizations MEDICAL (GENERAL) HISTORY Type Description Date Medical History hypertension Hospitalization History childbirth only
--- OUTSIDE RECORDS SUMMARY | 2018-05-03 15:30 | XMS REPORT ---
Author Author DHILLONEB Salinas Organization [facility] Address [address] [place] [address] Care Team Providers Care Front Desk Name Role Phone DHILLONEB Salinas Unavailable PROBLEMS Type Condition ICD9-CM Code ZUR97-ZO Code Onset Dates Condition Status SNOMED Code Problem Hypercholesteremia E78.00 Active 09249628 Problem Encounter to establish care Z76.89 Active 191321397 Problem Essential hypertension I10 Active 91421324 Problem Abnormal CT of the abdomen R93.5 Active 81153031447248400 ALLERGIES No Known Allergies SOCIAL HISTORY Never Assessed PLAN OF CARE Activity Details Follow Up 1 Months, 2 - 3 Days Reason:CHM, BP check VITAL SIGNS Height 63.7 in 2016-08-20 Weight 143.2 lbs 2016-08-20 Temperature 98.2 degrees Fahrenheit 2016-08-20 Heart Rate 84 bpm 2016-08-20 Respiratory Rate 18 2016-08-20 BMI 24.81 kg/m2 2016-08-20 Blood pressure systolic 160 mmHg 2016-08-20 Blood pressure diastolic 102 mmHg 2016-08-20 MEDICATIONS Medication Instructions Dosage Frequency Start Date End Date Duration Status Lisinopril 20 mg Orally Once a day 1 tablet 24h Aug, 90 days Active RESULTS Name Result Date Reference Range THYROID ANALYZER 2016-08-20 TSH 2.970 0.450-4.500 A1C 2016-08-20 Hemoglobin A1c 5.4 4.8-5.6 CBC 2016-08-20 WBC 9.3 3.4-10.8 RBC 4.78 3.77-5.28 Hemoglobin 14.5 11.1-15.9 Hematocrit 44.2 34.0-46.6 MCV 93 79-97 MCH 30.3 26.6-33.0 MCHC 32.8 31.5-35.7 RDW 13.7 12.3-15.4 Platelets 268 150-379 Neutrophils 60 Lymphs 30 Monocytes 7 Eos 2 Basos 1 Neutrophils (Absolute) 5.6 1.4-7.0 Lymphs (Absolute) 2.8 0.7-3.1 Monocytes(Absolute) 0.6 0.1-0.9 Eos (Absolute) 0.2 0.0-0.4 Baso (Absolute) 0.1 0.0-0.2 Immature Granulocytes 0 Immature Grans (Abs) 0.0 0.0-0.1 LIPID PANEL 2016-08-20 Cholesterol, Total 217 100-199 Triglycerides 132 0-149 HDL Cholesterol 72 >39 VLDL Cholesterol Fritz 26 5-40 LDL Cholesterol Calc 119 0-99 CMP 2016-08-20 Glucose, Serum 87 65-99 BUN 15 6-24 Creatinine, Serum 0.65 0.57-1.00 eGFR If NonAfricn Am 103 >59 eGFR If Africn Am 119 >59 BUN/Creatinine Ratio 23 9-23 Sodium, Serum 138 134-144 Potassium, Serum 4.1 3.5-5.2 Chloride, Serum 98 96-106 Carbon Dioxide, Total 22 18-29 Calcium, Serum 9.8 8.7-10.2 Protein, Total, Serum 6.6 6.0-8.5 Albumin, Serum 4.4 3.5-5.5 Globulin, Total 2.2 1.5-4.5 A/G Ratio 2.0 1.1-2.5 Bilirubin, Total <0.2 0.0-1.2 Alkaline Phosphatase, S 76 39-117 AST (SGOT) 14 0-40 ALT (SGPT) 10 0-32 PROCEDURES Procedure Date Ordered Result Body Site ASSAY THYROID STIM HORMONE Aug 20, 2016 COMPLETE CBC W/AUTO DIFF WBC Aug 20, 2016 VENIPUNCT, ROUTINE* Aug 20, 2016 COMPREHEN METABOLIC PANEL Aug 20, 2016 LIPID PANEL Aug 20, 2016 GLYCATED HEMOGLOBIN TEST Aug 20, 2016 IMMUNIZATIONS No Known Immunizations MEDICAL (GENERAL) HISTORY Type Description Date Medical History hypertension Hospitalization History childbirth only
--- OUTSIDE RECORDS SUMMARY | 2018-05-03 15:30 | XMS REPORT ---
Author Author DHILLONEB Salinas Organization [facility] Address [address] [place] [address] Care Team Providers Care Ict Customer Support Officer Name Role Phone EB DHILLON Unavailable PROBLEMS Type Condition ICD9-CM Code QCD99-BG Code Onset Dates Condition Status SNOMED Code Problem Menopausal vasomotor syndrome N95.1 Active 147611274 Problem GERD with esophagitis K21.0 Active 297491304 Problem Encounter to establish care Z76.89 Active 396188415 Problem Abnormal CT of the abdomen R93.5 Active 33292280991090901 Problem Hypercholesteremia E78.00 Active 87476159 Problem Essential hypertension I10 Active 46469915 ALLERGIES No Known Allergies ENCOUNTERS Encounter Location Date Diagnosis [facility] [id number] [place] [address] 64744- 0223 November, [facility] [id number] [place] [address] 59404- 1818 Sep, Menopausal vasomotor syndrome N95.1 [facility] [id number] [place] [address] 48478- 2647 Aug, Menopausal vasomotor syndrome N95.1 [facility] [id number] [place] [address] 87564- 9117 Jul, [facility] [id number] [place] [address] 31412- 7265 Jul, [facility] [address] [address]- [address] Jul, Essential hypertension I10 ; Hypercholesteremia E78.00 ; Menopausal vasomotor syndrome N95.1 and GERD with esophagitis K21.0 [facility] [id number] [place] [address] 87512- 8994 Jun, Pressure in chest R07.89 ; Essential hypertension I10 ; Hypercholesteremia E78.00 and GERD with esophagitis K21.0 [place] [address] 58055- 6677 Jun, [place] [address] 88118- 2888 Feb, Essential hypertension I10 ; Hypercholesteremia E78.00 ; Rectus sheath hematoma, subsequent encounter S30.1XXD and Abdominal pain due to injury R10.9 [place] [address] 70432- 1848 10 Jan, [address] of the abdomen R93.5 [place] [address] 16005- 3097 10 Jan, 2017 Pelvic pain R10.2 [place] [address] 53323- 6629 05 Jan, 2017 Essential hypertension I10 and Hypercholesteremia E78.00 [place] [address] 05823- 5615 Sep, Essential hypertension I10 and Hypercholesteremia E78.00 [place] [id number] [place] [address] 63446- 7889 Sep, [place] [address] 75092- 0750 Aug, [place] [id number] [place] [address] 39658- 7985 Aug, [place] [address] 96802- 1386 16 Aug, 2016 Encounter to establish care Z76.89 and Essential hypertension I10 [place] [address] 03657- 2048 14 Aug, 2016 [place] [address] [place] [address]- 1386 Aug, [facility] [address] [facility] [id number] Jul, [place] [address] [facility] [id number] [address]- 9278 Jul, Encounter for well woman exam with routine gynecological exam Z01.419 ; Encounter for screening for malignant neoplasm of cervix Z12.4 ; Encounter for screening breast examination Z12.39 ; Screening for STD (sexually transmitted disease) Z11.3 ; Acute non-recurrent maxillary sinusitis J01.00 and Vaginal candidiasis B37.3 [place] [address] [facility] [id number], [place] [address]- 9821 Jun, Breast lump in female N63 IMMUNIZATIONS No Known Immunizations SOCIAL HISTORY Never Assessed REASON FOR VISIT left sided abd pain. Shepard and stabbing pain , period from 01/05/17 to 01/08/17, has been having left sided pelvic pain since, pain is constant and stabbing-- DBennettRNaima PLAN OF CARE Activity Details Follow Up prn Reason: VITAL SIGNS Height 63.7 in 2017-01-11 Weight 140 lbs 2017-01-11 Temperature 98.6 degrees Fahrenheit 2017-01-11 Heart Rate 80 bpm 2017-01-11 Respiratory Rate 20 2017-01-11 BMI 24.26 kg/m2 2017-01-11 Blood pressure systolic 104 mmHg 2017-01-11 Blood pressure diastolic 70 mmHg 2017-01-11 MEDICATIONS Medication Instructions Dosage Frequency Start Date End Date Duration Status Lisinopril 20 mg Orally Once a day 1 tablet 24h 30 days Active Atorvastatin Calcium 10 mg Orally Once a day 1 tablet 24h Aug, 30 days Active RESULTS Name Result Date Reference Range CT Scan : Abdomen & Pelvis w/o Contrast 2017-01-11 Ultrasound : Pelvic, COMPLETE (REFLEX [id number]) 2017-01-11 PROCEDURES No Known procedures INSTRUCTIONS MEDICATIONS ADMINISTERED No Known Medications MEDICAL (GENERAL) HISTORY Type Description Date Medical History hypertension Hospitalization History childbirth only
--- OUTSIDE RECORDS SUMMARY | 2018-05-03 15:30 | XMS REPORT ---
Author Author DHILLONEB Salinas Organization [facility] Address [address] [place] [address] Care Team Providers Care Director Of People Name Role Phone EB DHILLON Unavailable PROBLEMS Type Condition ICD9-CM Code OUE37-KN Code Onset Dates Condition Status SNOMED Code Problem Essential hypertension I10 Active 11537974 Problem Abnormal CT of the abdomen R93.5 Active 27284434520659881 Problem Tobacco abuse counseling Z71.6 Active 052777816 Problem Tobacco abuse Z72.0 Active 471832542 Problem GERD with esophagitis K21.0 Active 732063797 Problem Hypercholesteremia E78.00 Active 43669060 Problem Overweight (BMI 25.0-29.9) E66.3 Active 445639488 Problem Menopausal vasomotor syndrome N95.1 Active 836504404 ALLERGIES No Known Allergies ENCOUNTERS Encounter Location Date Diagnosis [facility] [id number] [place] [address]858- 8515 November, [facility] [address] [place] [id number] [place] [address] 04597- 8479 November, Essential hypertension I10 ; Hypercholesteremia E78.00 ; GERD with esophagitis K21.0 ; Tobacco abuse Z72.0 ; Tobacco abuse counseling Z71.6 ; Cervical spine pain M54.2 ; Menopausal vasomotor syndrome N95.1 and Overweight (BMI 25.0-29.9) E66.3 [facility] [id number] [place] [address] 99974- 7941 Sep, Menopausal vasomotor syndrome N95.1 [facility] [id number] [place] [address] 48134- 3924 Aug, Menopausal vasomotor syndrome N95.1 [facility] [id number] [place] [address] 11604- 4060 Jul, [facility] [address] [address] Jul, [place] [address] [address] Jul, Essential hypertension I10 ; Hypercholesteremia E78.00 ; Menopausal vasomotor syndrome N95.1 and GERD with esophagitis K21.0 [place] [address] 88413- 9809 Jun, Pressure in chest R07.89 ; Essential hypertension I10 ; Hypercholesteremia E78.00 and GERD with esophagitis K21.0 [place] [address] [address]- [address] Jun, [place] [address] 21836- 7[address] Feb, Essential hypertension I10 ; Hypercholesteremia E78.00 ; Rectus sheath hematoma, subsequent encounter S30.1XXD and Abdominal pain due to injury R10.9 [place] [address] [address]65- [address] Jan, Abnormal CT of the abdomen R93.5 [place] [address] 44385- 6478 Jan, Pelvic pain R10.2 [place] [address] 51866- 3497 Jan, Essential hypertension I10 and Hypercholesteremia E78.00 [place] [address] 06030- 9211 Sep, Essential hypertension I10 and Hypercholesteremia E78.00 [place] [address] [place] [id number] [place] [address] 04413- 2238 Sep, [place] [address] 28130- 94[address] Aug, [facility] [address] [address] Aug, [place] [address] [place] [id number] [place] [address] 04078- 2058 Aug, Encounter to establish care Z76.89 and Essential hypertension I10 [place] [address] [place] [id number] [place] [address] 94323- 4315 Aug, [place] [address] [id number] [place] [address] 17179- 4970 Aug, [place] [address] [place] [id number] [place] [address] 20166- 3987 Jul, [place] [address] [place] [id number] [place] [address] 85482- 3790 Jul, Encounter for well woman exam with routine gynecological exam Z01.419 ; Encounter for screening for malignant neoplasm of cervix Z12.4 ; Encounter for screening breast examination Z12.39 ; Screening for STD sexually transmitted disease Z11.3 ; Acute non-recurrent maxillary sinusitis J01.00 and Vaginal candidiasis B37.3 [place] [address] [place] [address] 76043- 9156 Jun, Breast lump in female N63 IMMUNIZATIONS No Known Immunizations SOCIAL HISTORY Never Assessed REASON FOR VISIT Blood Pressure fu , patient states her blood pressure yesterday was 175/103 and having tingling on face -- rekha avelar PLAN OF CARE Activity Details Follow Up 4 Weeks Reason:HTN follow up VITAL SIGNS Height 63.7 in 2017-06-22 Weight 146.0 lbs 2017-06-22 Temperature 97.8 degrees Fahrenheit 2017-06-22 Heart Rate 88 bpm 2017-06-22 Respiratory Rate 18 2017-06-22 BMI 25.29 kg/m2 2017-06-22 Blood pressure systolic 146 mmHg 2017-06-22 Blood pressure diastolic 92 mmHg 2017-06-22 MEDICATIONS Medication Instructions Dosage Frequency Start Date End Date Duration Status Omeprazole Magnesium 20.6 (20 Base) mg Orally Once a day 1 tablet 24h Jun, 30 day(s) Active Lisinopril 20 mg Orally Once a day 1 tablet 24h 90 days Active Atorvastatin Calcium 10 mg Orally Once a day 1 tablet 24h Aug, 90 days Active Amlodipine Besylate 5 mg Orally Once a day 1 tablet 24h Jun, 30 day(s) Active Mucinex 600 MG Orally every 12 hrs 1 tablet as needed 12h Not- Taking RESULTS No Results PROCEDURES Procedure Date Ordered Result Body Site EKG, TRACING (IN-HOUSE) 2017-06-22 N/A ELECTROCARDIOGRAM, TRACING Jun 22, 2017 INSTRUCTIONS MEDICATIONS ADMINISTERED No Known Medications MEDICAL (GENERAL) HISTORY Type Description Date Medical History hypertension Hospitalization History childbirth only
--- OUTSIDE RECORDS SUMMARY | 2018-05-03 15:30 | XMS REPORT ---
Author Author EB DHILLON Organization [facility] Address [address] [place] [address] Care Team Providers Care Content Production Specialist Name Role Phone EB DHILLON Unavailable PROBLEMS Type Condition ICD9-CM Code BEK94-GU Code Onset Dates Condition Status SNOMED Code Problem Hypercholesteremia E78.00 Active 74434489 Problem Encounter to establish care Z76.89 Active 712448232 Problem Essential hypertension I10 Active 36274459 Problem Abnormal CT of the abdomen R93.5 Active [id number] ALLERGIES No Information SOCIAL HISTORY Never Assessed PLAN OF CARE VITAL SIGNS Height 63.7 in 2016-08-24 Blood pressure systolic 138 mmHg 2016-08-24 Blood pressure diastolic 79 mmHg 2016-08-24 MEDICATIONS No Known Medications RESULTS No Results PROCEDURES No Known procedures IMMUNIZATIONS No Known Immunizations MEDICAL (GENERAL) HISTORY Type Description Date Medical History hypertension Hospitalization History childbirth only
--- OUTSIDE RECORDS SUMMARY | 2018-05-03 15:30 | XMS REPORT ---
Author Author EB DHILLON Organization [facility] Address [address] [place] [address] Care Team Providers Care Newspaper Deliverer Name Role Phone EB DHILLON Unavailable PROBLEMS Type Condition ICD9-CM Code MCT92-QO Code Onset Dates Condition Status SNOMED Code Problem Essential hypertension I10 Active 35881101 Problem Abnormal CT of the abdomen R93.5 Active 53306399099417856 Problem Tobacco abuse counseling Z71.6 Active 021411439 Problem Tobacco abuse Z72.0 Active 338067821 Problem GERD with esophagitis K21.0 Active 808871287 Problem Hypercholesteremia E78.00 Active 33251052 Problem Overweight (BMI 25.0-29.9) E66.3 Active 565922475 Problem Menopausal vasomotor syndrome N95.1 Active 766138156 ALLERGIES No Information ENCOUNTERS Encounter Location Date Diagnosis [facility] [address] [id number] [place] [address] 10801- 8544 November, [facility] [id number] [place] [address] 05862- 3183 November, Essential hypertension I10 ; Hypercholesteremia E78.00 ; GERD with esophagitis K21.0 ; Tobacco abuse Z72.0 ; Tobacco abuse counseling Z71.6 ; Cervical spine pain M54.2 ; Menopausal vasomotor syndrome N95.1 and Overweight (BMI 25.0-29.9) E66.3 [facility] [id number] [place] [address] 35101- 6789 Sep, Menopausal vasomotor syndrome N95.1 [facility] [id number] [place] [address] 56017- 4561 Aug, Menopausal vasomotor syndrome N95.1 [facility] [address] [id number] [place] [address] 06525- 9808 Jul, [facility] [address] [id number] [place] [address] 21387- 9251 Jul, [place] [address] 57545- [address] Jul, Essential hypertension I10 ; Hypercholesteremia E78.00 ; Menopausal vasomotor syndrome N95.1 and GERD with esophagitis K21.0 [place] [address] 96800- 1448 Jun, Pressure in chest R07.89 ; Essential hypertension I10 ; Hypercholesteremia E78.00 and GERD with esophagitis K21.0 [place] [address] 36025- 4[address] Jun, [place] [address] 66948- 6274 Feb, Essential hypertension I10 ; Hypercholesteremia E78.00 ; Rectus sheath hematoma, subsequent encounter S30.1XXD and Abdominal pain due to injury R10.9 [place] [address] 13628- [address], [address] of the abdomen R93.5 [place] [address] [address] [id number] [place] [address] 73160- 2774 Jan, Pelvic pain R10.2 [place] [address] 69587- 9002 Jan, Essential hypertension I10 and Hypercholesteremia E78.00 [place] [address] [id number] [place] [address] 21562- 4965 Sep, Essential hypertension I10 and Hypercholesteremia E78.00 [place] [address] [address] [id number] [place] [address] 24809- 2358 Sep, [place] [address] [id number] [place] [address] 51101- 6498 Aug, [facility] [address] [address] Aug, [facility] [id number] [place] [address] 31491- 4972 Aug, Encounter to establish care Z76.89 and Essential hypertension I10 [place] [id number] [place] [address] 54221- 1254 Aug, [facility] [id number] [place] [address] 88243- 0555 Aug, [facility] [address] [id number] [place] [address] 18872- 9203 Jul, [place] [address] [address] [id number] [place] [address] 40644- 1821 Jul, Encounter for well woman exam with routine gynecological exam Z01.419 ; Encounter for screening for malignant neoplasm of cervix Z12.4 ; Encounter for screening breast examination Z12.39 ; Screening for STD sexually transmitted disease Z11.3 ; Acute non-recurrent maxillary sinusitis J01.00 and Vaginal candidiasis B37.3 [place] [address] [place] [address] 13535- 9680 Jun, Breast lump in female N63 IMMUNIZATIONS No Known Immunizations SOCIAL HISTORY Never Assessed REASON FOR VISIT PLAN OF CARE VITAL SIGNS MEDICATIONS Unknown Medications RESULTS No Results PROCEDURES No Known procedures INSTRUCTIONS MEDICATIONS ADMINISTERED No Known Medications MEDICAL (GENERAL) HISTORY Type Description Date Medical History hypertension Hospitalization History childbirth only
--- OUTSIDE RECORDS SUMMARY | 2018-05-03 15:30 | XMS REPORT ---
Author Author EB DHILLON Organization [facility] Address [address] [place] [address] Care Team Providers Care Telecommunication Equipment Repairer Name Role Phone EB DHILLON Unavailable PROBLEMS Type Condition ICD9-CM Code YLP65-XN Code Onset Dates Condition Status SNOMED Code Problem Hypercholesteremia E78.00 Active 28908086 Problem Encounter to establish care Z76.89 Active 231310076 Problem Essential hypertension I10 Active 29539939 Problem Abnormal CT of the abdomen R93.5 Active [id number] ALLERGIES No Known Allergies SOCIAL HISTORY No smoking Hx information available PLAN OF CARE VITAL SIGNS Height 63 in 2016-08-05 Heart Rate 90 bpm 2016-08-05 Blood pressure systolic 168 mmHg 2016-08-05 Blood pressure diastolic 110 mmHg 2016-08-05 MEDICATIONS Medication Instructions Dosage Frequency Start Date End Date Duration Status Lisinopril 10 mg Orally Once a day 1 tablet 24h Aug, 30 days Active RESULTS No Results PROCEDURES No Known procedures IMMUNIZATIONS No Known Immunizations
--- OUTSIDE RECORDS SUMMARY | 2018-05-03 15:31 | XMS REPORT ---
Author Author EB DHILLON Organization [facility] Address [address] [place] [address] Care Team Providers Care Embedded Firmware Developer Name Role Phone EB DHILLON Unavailable PROBLEMS Type Condition ICD9-CM Code PNY10-ZQ Code Onset Dates Condition Status SNOMED Code Problem Hypercholesteremia E78.00 Active 13502378 Problem Encounter to establish care Z76.89 Active 040568153 Problem Essential hypertension I10 Active 33039439 Problem Abnormal CT of the abdomen R93.5 Active [id number] ALLERGIES No Known Allergies SOCIAL HISTORY No smoking Hx information available PLAN OF CARE VITAL SIGNS MEDICATIONS No Known Medications RESULTS No Results PROCEDURES No Known procedures IMMUNIZATIONS No Known Immunizations
[2018-05-03] MEDS ORDERED: ATOR10TA66 (15:35)
[2018-05-03] MEDS ORDERED: OMEP20TA7 PO (15:36)
[2018-05-03] MEDS ORDERED: LISI40TA PO (15:37)
[2018-05-03] MEDS ORDERED: PARO40TA3 PO (15:37)
[2018-05-03] MEDS ORDERED: meTOprolol 5 MG/5 ML (LOPRESSOR) VIAL IV ONE ×2 (15:45→17:30)
[2018-05-03 15:51] LABS: BASOPHILS % (AUTO) 0 % (0-10); EOSINOPHILS # (AUTO) 0.1 10^3/uL (0.0-0.3); EOSINOPHILS % (AUTO) 1 % (0-10); HEMATOCRIT 42 % (35-52); HEMOGLOBIN 14.3 G/DL (11.5-16.0); LYMPHOCYTES # (AUTO) 2.9 X 10^3 (1.0-4.0); LYMPHOCYTES % (AUTO) 28 % (12-44); MEAN CORPUSCULAR HEMOGLOBIN 31 PG (25-34); MEAN CORPUSCULAR HGB CONC 34 G/DL (32-36); MEAN CORPUSCULAR VOLUME 91 FL (80-99); MEAN PLATELET VOLUME 10.2 FL (7.4-10.4); MONOCYTES # (AUTO) 0.8 X 10^3 (0.0-1.0); MONOCYTES % (AUTO) 8 % (0-12); NEUTROPHILS # (AUTO) 6.3 X 10^3 (1.8-7.8); NEUTROPHILS % (AUTO) 62 % (42-75); PLATELET COUNT 264 10^3/uL (130-400); RED BLOOD COUNT 4.62 10^6/uL (4.35-5.85); RED CELL DISTRIBUTION WIDTH 16.3 % (10.0-14.5); WHITE BLOOD COUNT 10.1 10^3/uL (4.3-11.0)
[2018-05-03 16:03] LABS: ALANINE AMINOTRANSFERASE 75 U/L (0-55); ALBUMIN 4.7 GM/DL (3.2-4.5); ALKALINE PHOSPHATASE 88 U/L (40-136); BILIRUBIN,TOTAL 0.4 MG/DL (0.1-1.0); BUN/CREATININE RATIO 31; CALCIUM 10.6 MG/DL (8.5-10.1); CARBON DIOXIDE 24 MMOL/L (21-32); CHLORIDE 101 MMOL/L (98-107); CREATININE SERUM 0.67 MG/DL (0.60-1.30); GFR ESTIMATED > 60; GLUCOSE 99 MG/DL (70-105); MAGNESIUM 1.5 MG/DL (1.8-2.4); POTASSIUM 3.8 MMOL/L (3.6-5.0); SODIUM 137 MMOL/L (135-145)
--- NOTE | 2018-05-03 16:04 | ED General ---
General Chief Complaint: Neurological Problems Stated Complaint: HEADACHE, FACE/HANDS TINGLING, BP HIGH Source of Information: Patient Exam Limitations: No Limitations History of Present Illness Date Seen by Provider: May 03, 2018 Time Seen by Provider: 15:37 Initial Comments Here with report of blood pressure out of control and feeling a headache as well as tingling to her hands and face. States that she felt a little dizzy earlier as well. Denies chest pain. States that she has increasing shortness of breath. Patient is a smoker. She admits to drinking one drink a night but family reports that this is likely much more than that. Denies nausea or vomiting. Denies fever or chills. Does have history of hypertension and is on lisinopril. Reports that she was on another medicine previously but stopped it because it was making her feel too tired. This was done under advisement from her primary doctor. Timing/Duration: 1-2 Days Severity: Moderate Modifying Factors: improves with Rest Associated Systoms: No Chest Pain, No Cough, No Fever/Chills; Headaches (global ); No Nausea/Vomiting; Shortness of Air; No Weakness Allergies and Home Medications Allergies Coded Allergies: No Allergy Information Available (Unverified , 01/12/17) Home Medications Lisinopril 40 Mg Tablet, 40 MG PO DAILY, (Reported) Patient Home Medication List Home Medication List Reviewed: Yes Review of Systems Review of Systems Constitutional: see HPI; No chills, No fever EENTM: no symptoms reported Respiratory: no symptoms reported Cardiovascular: see HPI; No chest pain, No edema Gastrointestinal: No abdominal pain, No nausea, No vomiting Genitourinary: no symptoms reported Musculoskeletal: no symptoms reported Skin: no symptoms reported Psychiatric/Neurological: See HPI, Headache Hematologic/Lymphatic: No Symptoms Reported All Other Systems Reviewed Negative Unless Noted: Yes Past Yaifgyh-Pajxsd-Wgtenl Hx Past Med/Social Hx: Reviewed Nursing Past Med/Soc Hx Patient Social History Alcohol Use: Occasionally Uses Alcohol Beverage of Choice: Whiskey Recreational Drug Use: No Smoking Status: Current Everyday Smoker Recent Foreign Travel: No Contact w/Someone Who Travel: No Past Medical History Surgeries: No Respiratory: No Cardiac: Yes Hypertension Gastrointestinal: No Musculoskeletal: No Endocrine: No Integumentary: No Family Medical History Reviewed Nursing Family Hx Hypertension Physical Exam Vital Signs Vital Signs - First Documented 05/03/18 15:27 Temp 98.8 Pulse 93 Resp 18 B/P (MAP) 207/127 (153) Pulse Ox 96 O2 Delivery Room Air Capillary Refill : Height, Weight, BMI Height: '" Weight: lbs. oz. kg; BMI Method: General Appearance: No Apparent Distress, WD/WN HEENT: PERRL/EOMI, Pharynx Normal Neck: Non Tender, Supple Respiratory: Lungs Clear, Normal Breath Sounds Cardiovascular: Regular Rate, Rhythm, No Murmur Gastrointestinal: Non Tender, Soft Back: Normal Inspection, No CVA Tenderness, No Vertebral Tenderness Extremity: Normal Range of Motion, Non Tender Neurologic/Psychiatric: Alert, Oriented x3, Other (gait was normal as well as balance on the way to the room.) Skin: Normal Color, Warm/Dry Progress/Results/Core Measures Suspected Sepsis SIRS Temperature: Pulse: Respiratory Rate: Laboratory Tests 05/03/18 15:37: White Blood Count 10.1 Blood Pressure / Mean: Laboratory Tests 05/03/18 15:37: Creatinine 0.67, Platelet Count 264, Total Bilirubin 0.4 Results/Orders Lab Results Laboratory Tests Test 05/03/18 15:37 Range/Units White Blood Count 10.1 4.3-11.0 10^3/uL Red Blood Count 4.62 4.35-5.85 10^6/uL Hemoglobin 14.3 11.5-16.0 G/DL Hematocrit 42 35-52 % Mean Corpuscular Volume 91 80-99 FL Mean Corpuscular Hemoglobin 31 25-34 PG Mean Corpuscular Hemoglobin Concent 34 32-36 G/DL Red Cell Distribution Width 16.3 H 10.0-14.5 % Platelet Count 264 130-400 10^3/uL Mean Platelet Volume 10.2 7.4-10.4 FL Neutrophils (%) (Auto) 62 42-75 % Lymphocytes (%) (Auto) 28 12-44 % Monocytes (%) (Auto) 8 0-12 % Eosinophils (%) (Auto) 1 0-10 % Basophils (%) (Auto) 0 0-10 % Neutrophils # (Auto) 6.3 1.8-7.8 X 10^3 Lymphocytes # (Auto) 2.9 1.0-4.0 X 10^3 Monocytes # (Auto) 0.8 0.0-1.0 X 10^3 Eosinophils # (Auto) 0.1 0.0-0.3 10^3/uL Basophils # (Auto) 0.0 0.0-0.1 10^3/uL D-Dimer 0.90 H 0.00-0.49 UG/ML Sodium Level 137 135-145 MMOL/L Potassium Level 3.8 3.6-5.0 MMOL/L Chloride Level 101 98-107 MMOL/L Carbon Dioxide Level 24 21-32 MMOL/L Anion Gap 12 5-14 MMOL/L Blood Urea Nitrogen 21 H 7-18 MG/DL Creatinine 0.67 0.60-1.30 MG/DL Estimat Glomerular Filtration Rate > 60 BUN/Creatinine Ratio 31 Glucose Level 99 70-105 MG/DL Calcium Level 10.6 H 8.5-10.1 MG/DL Corrected Calcium 8.5-10.1 MG/DL Magnesium Level 1.5 L 1.8-2.4 MG/DL Total Bilirubin 0.4 0.1-1.0 MG/DL Aspartate Amino Transf (AST/SGOT) 65 H 5-34 U/L Alanine Aminotransferase (ALT/SGPT) 75 H 0-55 U/L Alkaline Phosphatase 88 40-136 U/L Troponin I < 0.30 <0.30 NG/ML B-Type Natriuretic Peptide 10.0 <100.0 PG/ML Total Protein 8.0 6.4-8.2 GM/DL Albumin 4.7 H 3.2-4.5 GM/DL Thyroid Stimulating Hormone (TSH) 1.80 0.35-4.94 UIU/ML My Orders Orders - TERI DASILVA MD BNP (05/03/18 15:41) Cbc With Automated Diff (05/03/18 15:41) Comprehensive Metabolic Panel (05/03/18 15:41) Fibrin Degradation Products (05/03/18 15:41) Magnesium (05/03/18 15:41) Thyroid Stimulating Hormone (05/03/18 15:41) Troponin I (05/03/18 15:41) Saline Lock/Iv-Start (05/03/18 15:41) Ekg Tracing (05/03/18 15:41) Monitor-Rhythm Ecg Trace Only (05/03/18 15:41) Chest 1 View, Ap/Pa Only (05/03/18 15:41) Metoprolol Tartrate Injection (Lopressor (05/03/18 15:45) Ct Head Wo (05/03/18 15:57) Ct Angio Chest W (05/03/18 16:42) Saline Lock/Iv-Start (05/03/18 16:46) Ns Iv 500 Ml (Sodium Chloride 0.9%) (05/03/18 16:46) Amlodipine Tablet (Norvasc Tablet) (05/03/18 17:15) Iohexol Injection (Omnipaque 350 Mg/Ml 1 (05/03/18 17:15) Contrast Received (Contrast Received) (05/03/18 17:15) Ns (Ivpb) (Sodium Chloride 0.9%) (05/03/18 17:15) Metoprolol Tartrate Injection (Lopressor (05/03/18 17:30) Medications Given in ED Current Medications Medications Dose Ordered Sig/Elkin Route Start Time Stop Time Status Last Admin Dose Admin Amlodipine Besylate 10 mg ONCE ONCE PO 05/03/18 17:15 05/03/18 17:16 DC 05/03/18 17:09 10 MG Iohexol 150 ml ONCE ONCE IV 05/03/18 17:15 05/03/18 17:57 DC 05/03/18 17:16 140 ML Metoprolol Tartrate 5 mg ONCE ONCE IV 05/03/18 15:45 05/03/18 15:46 DC 05/03/18 15:51 5 MG Metoprolol Tartrate 5 mg ONCE ONCE IV 05/03/18 17:30 05/03/18 17:31 DC 05/03/18 17:38 5 MG Sodium Chloride 250 ml ONCE ONCE IV 05/03/18 17:15 05/03/18 17:57 DC 05/03/18 17:16 80 ML Sodium Chloride 500 ml @ 0 mls/hr Q0M ONCE IV 05/03/18 16:46 05/03/18 16:47 DC 05/03/18 16:59 500 MLS/HR Vital Signs/I&O 05/03/18 05/03/18 15:27 17:03 Temp 98.8 Pulse 93 77 Resp 18 18 B/P (MAP) 207/127 (153) 175/111 (132) Pulse Ox 96 98 O2 Delivery Room Air Room Air Capillary Refill : Progress Note : Progress Note Seen and evaluated. IV, labs, EKG and chest x-ray ordered. Lopressor 5 mg IV ordered. Monitor patient. Patient has had worsening symptoms over the past couple of months, we will go to get CT of the head due to. Prominent headache noted today and blood pressure in the 200s systolic over 120s diastolic. Repeat Lopressor 5 mg IV ordered when she had some improvement but then began to worsen again. Amlodipine 10 mg by mouth also ordered. CT of the chest ordered for elevated d-dimer and the concerns of shortness of breath. 1800: I did discuss at length with the patient regarding CT findings including pulmonary nodule that needs 6 month follow-up as well as concerns for possible pneumonia. Patient does report that she's had some recent fever. She's also been having sinus problems. We will initiate Levaquin outpatient as this will cover both well. This was discussed with patient and family who agree. Blood pressure is improving slowly with respect to systolic pressure and diastolic pressure I would hope to improve over time. She will follow-up with her doctor. We will write to write 2 week script and for amlodipine to give her time for follow-up. Discharged home with return precautions. Patient and family verbalize understanding instructions and agreement with plan. ECG Initial ECG Impression Date: May 03, 2018 Initial ECG Impression Time: 15:44 Initial ECG Rate: 89 Initial ECG Rhythm: Normal Sinus Initial ECG Impression: Normal Initial ECG Comparisson: No Previous ECG Available Comment Sinus rhythm with normal axis. No evidence of ST elevation [place]. No previous available for comparison. Interpreted by me. Diagnostic Imaging Diagonstic Imaging: Xray Plain Films/CT/US/NM/MRI: chest Diagonstic Imaging: CT Plain Films/CT/US/NM/MRI: head Comments VIA [facility], [facility]. [place], [place] NAME: NOLAN MELO [facility] REC#: [id number] PT STATUS: REG ER : 1965 PHYSICIAN: TERI DASILVA MD ADMIT DATE: 05/03/18/ER Draft Date of Exam:05/03/18 CT HEAD WO PROCEDURE: CT head without contrast. TECHNIQUE: Multiple contiguous axial images were obtained through the brain without the use of intravenous contrast. INDICATION: Right-sided headache and blurred vision. COMPARISON: No prior studies are available for comparison. FINDINGS: The ventricles and sulci are within normal limits. No sulcal effacement is seen. There is no midline shift. No acute intra-axial or extra-axial hemorrhage is detected. Cisterns are patent. The visualized paranasal sinuses are clear. IMPRESSION: No acute intracranial process is detected. Dictated on workstation # [id number] Dict: 05/03/18 1621 Trans: 05/03/18 1625 [facility] [id number] Interpreted by: JOHN ALCALA MD Electronically signed by: Diagonstic Imaging: CT Plain Films/CT/US/NM/MRI: chest Comments VIA [facility], [facility]. [place], [place] NAME: NOLAN MELO [facility] REC#: [id number] PT STATUS: REG ER : 1965 PHYSICIAN: TERI DASILVA MD ADMIT DATE: 05/03/18/ER Signed Date of Exam:05/03/18 CT ANGIO CHEST W PROCEDURE: CT angiography of the chest with contrast. TECHNIQUE: Multiple contiguous axial images were obtained through the chest after uneventful bolus administration of intravenous contrast. 2D reconstructed CTA MIP acquisitions were also performed. INDICATION: Elevated d-dimer and shortness of air. COMPARISON: No prior studies are available for comparison. FINDINGS: There is good pulmonary arterial opacification. Pulmonary arterial system is without evidence of thromboemboli. No filling defects within the central, lobar or segmental branches are seen. The thoracic aorta is normal caliber. No dissection is identified. No pericardial or pleural fluid is identified. Parenchymal evaluation does show some generalized tree in bud opacities in bilateral upper lobes. It is noted to a lesser degree in the lower lobes. This is likely on an infectious/inflammatory basis. There is a tiny 4 mm nodule in the right lower lobe, image 75. Left upper lobe contains a 5 mm nodule, indeterminate. Upper abdomen does show some generalized low density throughout the liver consistent with hepatic steatosis. No other abnormalities are seen. IMPRESSION: 1. No evidence of pulmonary embolism or thoracic aortic dissection. 2. No thoracic lymphadenopathy or chest effusion is seen. 3. Generalized infiltrates bilaterally, likely on an infectious/inflammatory basis. There are indeterminate nodules bilaterally, as described and followup CT chest in 6 month could be performed to confirm stability. Dictated by: Dictated on workstation # [id number] Dict: 05/03/18 1735 Trans: 05/03/18 1744 [id number] Interpreted by: JOHN ALCALA MD Electronically signed by: JOHN ALCALA MD 05/03/18 174 Departure Impression Primary Impression: Uncontrolled hypertension Additional Impressions: Pneumonia of both lower lobes Qualified Codes: J18.1 - Lobar pneumonia, unspecified organism Pulmonary nodules Disposition: HOME, SELF-CARE Condition: Stable Departure-Patient Inst. Decision time for Depature: 18:09 Referrals: [facility] [place] (PCP/Family) Primary Care Physician Patient Instructions: Community-Acquired Pneumonia, Adult (DC), High Blood Pressure (DC), Multiple Pulmonary Nodules Add. Discharge Instructions: All discharge instructions reviewed with patient and/or family. Voiced understanding. You need to have recheck CT scan in 6 months to evaluate the pulmonary nodules. Follow up with your Dr. within one to 2 weeks for recheck regarding her blood pressure and evaluate continuation of medication versus medication change. Also discussed with your doctor about pulmonary nodules. A copy of the chart was sent to the clinic. You should decrease and/or quit smoking. He should decrease alcohol intake as well. Return for worse pain., Fever, vomiting, weakness, breathing problems or other concerns as needed. Avoid antihistamines as they may increase your blood pressure. You may take Coricidin HBP if needed for congestion. Scripts Levofloxacin (Levofloxacin) 500 Mg Tablet 500 MG PO DAILY, #6 TAB 0 Refills Prov: TERI DASILVA MD 05/03/18 Amlodipine Besylate (Amlodipine Besylate) 10 Mg Tablet 10 MG PO DAILY, #15 TAB 0 Refills Prov: TERI DASILVA MD 05/03/18 Copy Copies To 1: NELL LOZANO TIMOTHY D MD May 03, 2018 16:04
--- NOTE | 2018-05-03 16:26 | Diagnostic Imaging Report ---
PROCEDURE: CT head without contrast. TECHNIQUE: Multiple contiguous axial images were obtained through the brain without the use of intravenous contrast. INDICATION: Right-sided headache and blurred vision. COMPARISON: No prior studies are available for comparison. FINDINGS: The ventricles and sulci are within normal limits. No sulcal effacement is seen. There is no midline shift. No acute intra-axial or extra-axial hemorrhage is detected. Cisterns are patent. The visualized paranasal sinuses are clear. IMPRESSION: No acute intracranial process is detected. Dictated by: Dictated on workstation # [id number]
--- NOTE | 2018-05-03 16:38 | Diagnostic Imaging Report ---
INDICATION: Headache and hypertension. TECHNIQUE: Frontal chest obtained at 4:51 p.m. FINDINGS: Heart and mediastinal silhouette are normal in appearance. The lungs are clear. There is no pneumothorax or pleural fluid. IMPRESSION: Negative chest. Dictated by: Dictated on workstation # [id number]
[2018-05-03] MEDS ORDERED: NS IV 500 ML 500 ML IV ONE (16:46)
[2018-05-03 17:03] VITALS: BP 175/111
[2018-05-03] MEDS ORDERED: RECEIVED CONTRAST (Hold Metformin) IV SCH (17:15)
[2018-05-03] MEDS ORDERED: IOHEXOL 350 MG/ML 150 ML (OMNIPAQUE 350) VIAL IV ONE (17:15)
[2018-05-03] MEDS ORDERED: amLODIPine 5 MG (NORVASC) TAB PO ONE (17:15)
[2018-05-03] MEDS ORDERED: NS 250 ML (IVPB) BAG IV ONE (17:15)
--- NOTE | 2018-05-03 17:47 | Diagnostic Imaging Report ---
PROCEDURE: CT angiography of the chest with contrast. TECHNIQUE: Multiple contiguous axial images were obtained through the chest after uneventful bolus administration of intravenous contrast. 2D reconstructed CTA MIP acquisitions were also performed. INDICATION: Elevated d-dimer and shortness of air. COMPARISON: No prior studies are available for comparison. FINDINGS: There is good pulmonary arterial opacification. Pulmonary arterial system is without evidence of thromboemboli. No filling defects within the central, lobar or segmental branches are seen. The thoracic aorta is normal caliber. No dissection is identified. No pericardial or pleural fluid is identified. Parenchymal evaluation does show some generalized tree in bud opacities in bilateral upper lobes. It is noted to a lesser degree in the lower lobes. This is likely on an infectious/inflammatory basis. There is a tiny 4 mm nodule in the right lower lobe, image 75. Left upper lobe contains a 5 mm nodule, indeterminate. Upper abdomen does show some generalized low density throughout the liver consistent with hepatic steatosis. No other abnormalities are seen. IMPRESSION: 1. No evidence of pulmonary embolism or thoracic aortic dissection. 2. No thoracic lymphadenopathy or chest effusion is seen. 3. Generalized infiltrates bilaterally, likely on an infectious/inflammatory basis. There are indeterminate nodules bilaterally, as described and followup CT chest in 6 month could be performed to confirm stability. Dictated by: Dictated on workstation # [id number]
[2018-05-03] MEDS ORDERED: LEVOFLOXACIN 500 MG TAB (LEVAQUIN) PO STA (18:05)
[2018-05-03] MEDS ORDERED: AMLO10TA6 PO (18:16)
[2018-05-03] MEDS ORDERED: LEVO500T80 PO (18:16)
[2018-05-03 18:19] VITALS: BP 166/112
== END 2018-05-03 18:19 | disposition home or self-care (01) ==
LOC: EDUNIT# 15:24 → ER 15:25
DX: I10 Essential (primary) hypertension (principal); J18.1 Lobar pneumonia, unspecified organism; R91.8 Other nonspecific abnormal finding of lung field; F17.200 Nicotine dependence, unspecified, uncomplicated
CPT/HCPCS: 36415; 70450; 71045; 71275; 80053; 83735; 83880; 84443; 84484; 85025; 85379; 93005; 93041; 96361; 96374; 96376

== ENCOUNTER → 2018-06-30 | Outpatient (CLI) | payer SELFPAY ==
[~2018-06-30] MED LIST changes: +AMLO10TA6 PO; +ATOR10TA66; -CATHETER FLUSH 10 ML SYR IV PRN; +LEVO500T80 PO; +LISI40TA PO; +OMEP20TA7 PO; +PARO40TA3 PO; +RECEIVED CONTRAST (Hold Metformin) IV SCH
[2018-06-30 11:49] LABS: BUN/CREATININE RATIO 16; CREATININE SERUM 0.67 MG/DL (0.60-1.30); GFR ESTIMATED > 60
--- NOTE | 2018-06-30 12:48 | Diagnostic Imaging Report ---
PROCEDURE: CT abdomen with contrast only. TECHNIQUE: Multiple contiguous axial images were obtained through the abdomen after the administration of intravenous contrast. INDICATION: Elevated metanephrines. COMPARISON: Correlation is made with prior CT from 01/12/2017. FINDINGS: The lung bases are clear. The liver is unremarkable. No discrete liver mass is detected. Gallbladder appears contracted. No biliary ductal dilatation is seen. The pancreas and spleen are unremarkable. Bilateral adrenal glands have a normal size and morphology. No adrenal mass is identified. The kidneys are unremarkable. The aorta is non-aneurysmal. No central retroperitoneal or mesenteric lymphadenopathy is seen. Small and large bowel loops are normal in caliber. There is no ascites. Bony structures are nonacute. There is a small fat-containing umbilical hernia. IMPRESSION: Essentially unremarkable CT of the abdomen with contrast. No adrenal or extra-adrenal mass is detected. Dictated by: Dictated on workstation # [id number]
== END ==
LOC: RAD 11:06
PROVIDERS: ATTEND Internal Medicine
DX: R89.9 Unspecified abnormal finding in specimens from other organs, systems and tissues (principal)
CPT/HCPCS: 36415; 74160; 82565; 84520

== ENCOUNTER → 2020-10-09 | Outpatient (CLI) | payer BC ==
[~2020-10-09] MED LIST changes: +AMLO-251 PO; -AMLO10TA6 PO; -IOHEXOL 350 MG/ML 100 ML (OMNIPAQUE 350) VIAL IV ONE; -LISI40TA PO; +LISI40TA9 PO; -NS 100 ML (IVPB) BAG IV ONE; -RECEIVED CONTRAST (Hold Metformin) IV SCH
== END ==
LOC: CARD 10:27
PROVIDERS: ATTEND Nurse Practitioner Family
DX: I10 Essential (primary) hypertension (principal); F41.1 Generalized anxiety disorder; R07.89 Other chest pain
CPT/HCPCS: 93306

== ENCOUNTER 2020-10-15 14:26 | Emergency (ER) | payer BC ==
[~2020-10-15] VITALS: Ht 162.6 cm; Wt 63.5 kg
[2020-10-15 15:00] LABS: BASOPHILS % (AUTO) 1 % (0-10); EOSINOPHILS % (AUTO) 3 % (0-10); HEMATOCRIT 39 % (35-52); HEMOGLOBIN 13.2 G/DL (11.5-16.0); LYMPHOCYTES % (AUTO) 26 % (12-44); MEAN CORPUSCULAR HEMOGLOBIN 30 PG (25-34); MEAN CORPUSCULAR HGB CONC 34 G/DL (32-36); MEAN CORPUSCULAR VOLUME 89 FL (80-99); MEAN PLATELET VOLUME 10.5 FL (7.4-10.4); MONOCYTES % (AUTO) 9 % (0-12); NEUTROPHILS % (AUTO) 62 % (42-75); PLATELET COUNT 294 10^3/uL (130-400); WHITE BLOOD COUNT 11.4 10^3/uL (4.3-11.0)
[2020-10-15] MEDS ORDERED: ASPIRIN 81 MG CHEW (CHILDREN'S ASA) PO ONE (15:00)
[2020-10-15 15:01] LABS: BASOPHILS # (AUTO) 0.1 10^3/uL (0.0-0.1); EOSINOPHILS # (AUTO) 0.3 10^3/uL (0.0-0.3)
[2020-10-15 15:12] LABS: CHLORIDE 96 MMOL/L (98-107); POTASSIUM 3.8 MMOL/L (3.6-5.0); SODIUM 134 MMOL/L (135-145)
[2020-10-15 15:13] LABS: ALANINE AMINOTRANSFERASE 16 U/L (0-55); ALBUMIN 4.7 GM/DL (3.2-4.5); ALKALINE PHOSPHATASE 101 U/L (40-136); BILIRUBIN,TOTAL 0.3 MG/DL (0.1-1.0); BUN/CREATININE RATIO 31; CALCIUM 9.6 MG/DL (8.5-10.1); CARBON DIOXIDE 25 MMOL/L (21-32); CREATININE SERUM 0.51 MG/DL (0.60-1.30); GFR ESTIMATED > 60; GLUCOSE 91 MG/DL (70-105); TOTAL PROTEIN 7.3 GM/DL (6.4-8.2)
--- NOTE | 2020-10-15 15:29 | ED Cardiac General ---
History of Present Illness General Chief Complaint: Chest Pain Stated Complaint: CHEST PAIN Nursing Triage Note: Patient reports she has recently been diagnosed with hypertension, states she has had a recent ECHO with grade 2 diastolic dysfunction, states she is scheduled for a stress test in November and is setting up an appointment with a leasing agent in [place]. She reports she has had exertional chest pain for 2 days, rated at 2-3/10, left precordial, described as pressure. She also reports extreme fatigue for 3-4 days. History of Present Illness Date Seen by Provider: Oct 15, 2020 Time Seen by Provider: 14:30 Initial Comments 55-year-old female presents with chest pressure constant for the last 3 days. States that it is worse with activities and better at rest. Recent past medical history, she was seen by her PCP and incidentally noted to have high blood pressure. She was sent for an echocardiogram and started on lisinopril. She is currently being scheduled for an outpatient stress test with cardiology. She denies recent illness, fever, cough or chills. She denies any abdominal pain, nausea vomiting or diaphoresis. She denies swelling of extremities, headache or visual changes. She is a 40 yr smoker NTG SL FUNERAL DIRECTOR/EMBALMER/OWNER: No ASA po FUNERAL DIRECTOR/EMBALMER/OWNER: No Allergies and Home Medications Allergies Coded Allergies: No Known Drug Allergies (Unverified , 10/15/20) Home Medications Albuterol Sulfate 1 Puff Puff, 2 PUFF IH Q4H 1 PUFF = 90 MCG Prescribed by: NOHEMY BARNES on 10/15/201540 Amlodipine Besylate 10 Mg Tablet, 10 MG PO DAILY Prescribed by: TERI DASILVA on 05/03/181815 Fexofenadine HCl 180 Mg Tablet, 180 MG PO DAILY Prescribed by: NOHEMY BARNES on 10/15/20 154 Fluticasone Propionate 9.9 Ml [place].susp, 2 SPRAY NS DAILY 2 SPRAYS PER NOSTRIL DAILY X 2 DAYS THEN 1 SPRAY DAILY Prescribed by: NOHEMY BARENS on 10/15/201540 Levofloxacin 500 Mg Tablet, 500 MG PO DAILY Prescribed by: TERI DASILVA on 05/03/181815 Lisinopril 40 Mg Tablet, 40 MG PO DAILY, (Reported) Prednisone 50 Mg Tab, 50 MG PO DAILY Prescribed by: NOHEMY BARNES on 10/15/20 1541 Patient Home Medication List Home Medication List Reviewed: Yes Review of Systems Review of Systems Constitutional: No fever, No malaise; weakness EENTM: No Symptoms Reported Respiratory: Denies Cough, Denies Shortness of Air; SOA With Exertion; Denies SOA at Rest Cardiovascular: Chest Pain (pressure); Denies Edema, Denies Irregular Heart Rate, Denies Lightheadedness, Denies Palpitations, Denies Syncope Gastrointestinal: Denies Abdominal Pain, Denies Nausea, Denies Vomiting Musculoskeletal: No back pain, No joint pain, No muscle pain Skin: No change in color, No rash Psychiatric/Neurological: Denies Anxiety, Denies Depressed, Denies Numbness, Denies Paresthesia, Denies Tremors, Denies Weakness Past Yhshkgt-Axbyys-Pbljpl Hx Past Med/Social Hx: Reviewed Nursing Past Med/Soc Hx Patient Social History Alcohol Use: Occasionally Uses Number of Drinks Today: GG Alcohol Beverage of Choice: Whiskey Smoking Status: Current Everyday Smoker Type Used: Cigarettes 2nd Hand Smoke Exposure: No Recent Infectious Disease Expo: No Recent Hopitalizations: No Seasonal Allergies Seasonal Allergies: No Past Medical History Surgeries: No Respiratory: No Cardiac: Yes (Diastolic dysfunction) Hypertension Neurological: No Genitourinary: No Gastrointestinal: No Musculoskeletal: No Endocrine: No HEENT: No Cancer: No Psychosocial: No Depression Integumentary: No Blood Disorders: No Family Medical History Hypertension Physical Exam Vital Signs Vital Signs - First Documented 10/15/20 14:30 Temp 36.8 Pulse 71 Resp 23 B/P (MAP) 162/70 (100) Pulse Ox 95 O2 Delivery Room Air Capillary Refill : Less Than 3 Seconds Height, Weight, BMI Height: 5'3.00" Weight: 140lbs. oz. 63.170469md; 24.00 BMI Method:Stated General Appearance: No Apparent Distress, WD/WN HEENT: PERRL/EOMI, Normal ENT Inspection Neck: Normal Inspection, Non Tender, Supple Respiratory: Chest Non Tender, Lungs Clear, Normal Breath Sounds, No Accessory Muscle Use, No Respiratory Distress Cardiovascular: Regular Rate, Rhythm, No Edema, No Gallop, No JVD, No Murmur, Normal Peripheral Pulses Gastrointestinal: No Organomegaly, Non Tender, Soft Extremity: Normal Capillary Refill, Normal Inspection, Non Tender Neurologic/Psychiatric: Alert, Oriented x3, No Motor/Sensory Deficits, Normal Mood/Affect Skin: Normal Color, Warm/Dry Progress/Results/Core Measures Results/Orders Lab Results Laboratory Tests Test 10/15/20 14:36 Range/Units White Blood Count 11.4 H 4.3-11.0 10^3/uL Red Blood Count 4.39 4.35-5.85 10^6/uL Hemoglobin 13.2 11.5-16.0 G/DL Hematocrit 39 35-52 % Mean Corpuscular Volume 89 80-99 FL Mean Corpuscular Hemoglobin 30 25-34 PG Mean Corpuscular Hemoglobin Concent 34 32-36 G/DL Red Cell Distribution Width 13.5 10.0-14.5 % Platelet Count 294 130-400 10^3/uL Mean Platelet Volume 10.5 H 7.4-10.4 FL Immature Granulocyte % (Auto) 0 % Neutrophils (%) (Auto) 62 42-75 % Lymphocytes (%) (Auto) 26 12-44 % Monocytes (%) (Auto) 9 0-12 % Eosinophils (%) (Auto) 3 0-10 % Basophils (%) (Auto) 1 0-10 % Neutrophils # (Auto) 7.0 1.8-7.8 X 10^3 Lymphocytes # (Auto) 3.0 1.0-4.0 X 10^3 Monocytes # (Auto) 1.0 0.0-1.0 X 10^3 Eosinophils # (Auto) 0.3 0.0-0.3 10^3/uL Basophils # (Auto) 0.1 0.0-0.1 10^3/uL Immature Granulocyte # (Auto) 0.0 0.0-0.1 10^3/uL Sodium Level 134 L 135-145 MMOL/L Potassium Level 3.8 3.6-5.0 MMOL/L Chloride Level 96 L 98-107 MMOL/L Carbon Dioxide Level 25 21-32 MMOL/L Anion Gap 13 5-14 MMOL/L Blood Urea Nitrogen 16 7-18 MG/DL Creatinine 0.51 L 0.60-1.30 MG/DL Estimat Glomerular Filtration Rate > 60 BUN/Creatinine Ratio 31 Glucose Level 91 70-105 MG/DL Calcium Level 9.6 8.5-10.1 MG/DL Corrected Calcium 8.5-10.1 MG/DL Total Bilirubin 0.3 0.1-1.0 MG/DL Aspartate Amino Transf (AST/SGOT) 21 5-34 U/L Alanine Aminotransferase (ALT/SGPT) 16 0-55 U/L Alkaline Phosphatase 101 40-136 U/L Troponin I < 0.30 <0.30 NG/ML Total Protein 7.3 6.4-8.2 GM/DL Albumin 4.7 H 3.2-4.5 GM/DL My Orders Orders - NOHEMY BARNES DO Ed Iv/Invasive Line Start (10/15/20 14:50) Chest 1 View Ap/Pa Only (10/15/20 14:50) Ekg Tracing (10/15/20 14:50) Cbc With Automated Diff (10/15/20 14:50) Comprehensive Metabolic Panel (10/15/20 14:50) Troponin I Fs (10/15/20 14:50) Aspirin Chewable Tablet (Baby Aspirin Ch (10/15/20 15:00) Albuterol/Ipra Inhalation Soln (Duoneb I (10/15/20 15:45) Svn Small Volume Nebulizer (10/15/20 15:31) Medications Given in ED Current Medications Medications Dose Ordered Sig/Elkin Route Start Time Stop Time Status Last Admin Dose Admin Albuterol/ Ipratropium 3 ml ONCE ONCE INH 10/15/20 15:45 10/15/20 15:46 DC 10/15/20 15:41 3 ML Aspirin 324 mg ONCE ONCE PO 10/15/20 15:00 10/15/20 15:01 DC 10/15/20 14:58 324 MG Vital Signs/I&O 10/15/20 10/15/20 10/15/20 14:30 14:48 15:56 Temp 36.8 Pulse 71 71 Resp 23 16 B/P (MAP) 162/70 (100) 135/70 Pulse Ox 95 96 O2 Delivery Room Air Room Air Room Air Blood Pressure Mean: 100 Progress Progress Note : Progress Note Normal EKG, vital signs and cardiac work-up including negative troponin with 3 days of chest pressure. Patient did admit to having moderate allergy symptoms, stuffy nose, postnasal drainage and a cough. Admits to having seasonal allergies and she has been taking some Claritin. Trial of DuoNeb did give her some relief of her pressure, patient did have a moderate cough that was productive. Her chest x-ray was clear. Discussed treating her allergies and also some prednisone for a few days, Flonase and Blaire as well as an albuterol inhaler. She agrees and understands this plan and will follow up with her PCP this week. Also encouraged her to continue to follow-up with cardiology as previously planned. Initial ECG Impression Time: 14:30 Initial ECG Rate: 70 Initial ECG Rhythm: Normal Sinus Initial ECG Intervals: Normal Initial ECG Impression: Normal Initial ECG Comparisson: No Previous ECG Available Diagnostic Imaging Diagonstic Imaging: Xray Plain Films/CT/US/NM/MRI: chest Comments Date of Exam:10/15/20 CHEST 1 VIEW AP/PA ONLY INDICATION: Chest pain. TECHNIQUE/COMPARISON: A frontal chest was obtained at 2:46 PM and compared with 05/03/2018. FINDINGS: The heart and mediastinal silhouette are normal in appearance. The lungs appear clear. There is no pneumothorax or pleural fluid. IMPRESSION: Negative chest. Dictated by: Dictated on workstation # [id number] Dict: 10/15/20 1536 Trans: 10/15/20 1538 [id number] Interpreted by: AGUILA LOMELI MD Electronically signed by: AGUILA LOMELI MD 10/15/20 1538 Departure Impression Primary Impression: Chest pain Qualified Codes: R07.9 - Chest pain, unspecified Disposition: 01 HOME, SELF-CARE Condition: Stable Departure-Patient Inst. Decision time for Depature: 15:38 Referrals: [facility] (PCP) Primary Care Physician RICHARD MUNOZ APRN (Family) Primary Care Physician Patient Instructions: Chest Pain (DC) Scripts Fluticasone Propionate (Flonase Allergy Relief) 9.9 Ml [place].susp 2 SPRAY NS DAILY, #1 EACH 1 Refill 2 SPRAYS PER NOSTRIL DAILY X 2 DAYS THEN 1 SPRAY DAILY Prov: ROVENSTINENOHEMY DO 10/15/20 Fexofenadine HCl ([employer] Allergy) 180 Mg Tablet 180 MG PO DAILY, #10 TAB Prov: ROVENSTINENOHEMY DO 10/15/20 Prednisone (Prednisone) 50 Mg Tab 50 MG PO DAILY, #5 TAB Prov: ROVENSTINENOHEMY DO 10/15/20 Albuterol Sulfate (PROAIR HFA) 1 Puff Puff 2 PUFF IH Q4H for Cough, #1 PUFF 1 Refill 1 PUFF = 90 MCG Prov: NOHEMY BARNES DO 10/15/20 NOHEMY BARNES DO Oct 15, 2020 15:28
--- NOTE | 2020-10-15 15:38 | Diagnostic Imaging Report ---
INDICATION: Chest pain. TECHNIQUE/COMPARISON: A frontal chest was obtained at 2:46 PM and compared with 05/03/2018. FINDINGS: The heart and mediastinal silhouette are normal in appearance. The lungs appear clear. There is no pneumothorax or pleural fluid. IMPRESSION: Negative chest. Dictated by: Dictated on workstation # [id number]
[2020-10-15] MEDS ORDERED: RT-ALBUINH IH (15:41)
[2020-10-15] MEDS ORDERED: PRD50T PO (15:41)
[2020-10-15] MEDS ORDERED: FEXO-16 PO (15:41)
[2020-10-15] MEDS ORDERED: FLUT9.9S NS (15:41)
[2020-10-15] MEDS ORDERED: RT-ALBUTEROL/IPRATROPIUM 3 ML (DUONEB) VIAL INH ONE (15:45)
[2020-10-15 15:56] VITALS: BP 135/70
== END 2020-10-15 15:56 | disposition home or self-care (01) ==
LOC: EDUNIT# 14:26 → ER FS 14:28
DX: R07.9 Chest pain, unspecified (principal); I10 Essential (primary) hypertension; F17.210 Nicotine dependence, cigarettes, uncomplicated; Z82.49 Family history of ischemic heart disease and other diseases of the circulatory system; Z79.52 Long term (current) use of systemic steroids
CPT/HCPCS: 36415; 71045; 80053; 84484; 85025; 93005

== ENCOUNTER → 2020-12-25 | Outpatient (CLI) | payer BC ==
[~2020-12-25] MED LIST changes: +CATHETER FLUSH 10 ML SYR IV PRN; +FEXO-16 PO; +FLUT9.9S NS; +PRD50T PO; +RT-ALBUINH IH
[2020-12-25 13:16] VITALS: BP 159/97
--- NOTE | 2020-12-25 17:36 | STRESS TEST ---
DATE OF SERVICE: 12/25/2020 EXERCISE MYOVIEW STRESS TEST REFERRING PHYSICIAN: [facility], . Baseline heart rate is 69, baseline blood pressure 169/95. In summary, the patient was injected with 10.77 mCi of technetium-99 Myoview and the resting images were obtained. Then, the patient started exercising with a baseline heart rate, blood pressure and EKG mentioned above. At peak stress level, the patient was injected with 30.2 mCi of technetium-99 Myoview. During the test, there were minimal nondiagnostic EKG changes. The resting and stress images were reviewed and compared in the short axis, horizontal long axis, and vertical long axis views. Review of the images showed breast attenuation with typical female pattern. No significant ischemia or infarction were seen. SSS 1, SDS 1. TID value 1.03. On the gated images, the left ventricle appeared to be normal size with normal contractility. Calculated ejection fraction 58%. CONCLUSION: 1. Fair exercise tolerance, a total of 5 minutes/7 METS on standard Jake protocol, achieving maximum heart rate of 146, returned to baseline during recovery. 2. Mild hypertensive response to exercise with peak blood pressure 192/96, returned to baseline during recovery. 3. Nondiagnostic EKG changes with exercise, returned to baseline during recovery. 4. Typical female pattern with no significant ischemia or infarction on SPECT images. 5. Normal left ventricular size, EF 58%. Job ID: [id number] DocumentID: [id number] Dictated Date: 12/25/2020 15:57:56 Blueprint Duplicator Date: 12/25/2020 17:35:14 Dictated By: BELL GEORGE MD
== END ==
LOC: CARD 11:35
PROVIDERS: ATTEND Internal Medicine Cardiovascular Disease
DX: I10 Essential (primary) hypertension (principal)
CPT/HCPCS: 78452; 93017; 93225; 93226; A9502